=== PATIENT | male | born 1945 | race Caucasian/White ===

== ENCOUNTER → 2016-10-05 | Outpatient (REF) | payer MEDICARE ==
[~2016-10-05] MED LIST: FLOM5CAP PO; PERCOCET PO
[2016-10-05 11:33] LABS: BASO % 0.5 % (0.0-1.0); EOS # 0.3 K/mm3 (0.0-0.50); EOS % 4.4 % (0.0-3.0); LARGE UNSTAINED CELL # 0.1 K/mm3 (0.0-0.4); LARGE UNSTAINED CELL % 1.4 % (0.0-4.0); LYMPH # 1.7 K/mm3 (1.5-4.5); LYMPH % 26.8 % (24.0-44.0); MEAN CORPUSCULAR HEMOGLOBIN 31.8 pg (27.0-33.0); MEAN CORPUSCULAR HGB CONC 34.8 g/dl (32.0-36.5); MEAN CORPUSCULAR VOLUME 91.4 fl (80.0-96.0); MONO # 0.4 K/mm3 (0.0-0.8); NEUTROPHILS # 3.7 K/mm3 (1.8-7.7); NEUTROPHILS % 60.9 % (36.0-66.0); PLATELET COUNT, AUTOMATED 201 k/mm3 (150-450); RED CELL DISTRIBUTION WIDTH 13.1 % (11.5-14.5); WHITE BLOOD COUNT 6.1 K/mm3 (4.0-10.0)
[2016-10-05 11:55] LABS: ALBUMIN 4.1 GM/DL (3.2-5.2); ALBUMIN/GLOBULIN RATIO 1.17 (1.00-1.93); ALKALINE PHOSPHATASE 78 U/L (45-117); ALT/SGPT 35 U/L (12-78); ANION GAP 10 MEQ/L (8-16); AST/SGOT 25 U/L (15-37); BLOOD UREA NITROGEN 14 MG/DL (7-18); CALCIUM LEVEL 9.2 MG/DL (8.8-10.2); CARBON DIOXIDE LEVEL 27 MEQ/L (21-32); CHLORIDE LEVEL 104 MEQ/L (98-107); CHOLESTEROL LEVEL 153 MG/DL (<200); CREATININE FOR GFR 0.91 MG/DL (0.70-1.30); FERRITIN 139 NG/ML (26-388); GLOMERULAR FILTRATION RATE > 60.0 (>42); GLUCOSE, FASTING 131 MG/DL (83-110); PERCENT SATURATION 35.9 % (19.7-37.4); POTASSIUM SERUM 4.5 MEQ/L (3.5-5.1); SODIUM LEVEL 141 MEQ/L (136-145); TOTAL IRON BINDING CAPACITY 426 UG/DL (250-450); TOTAL PROTEIN 7.6 GM/DL (6.4-8.2); TRIGLYCERIDES LEVEL 240 MG/DL (<150)
== END ==
LOC: M SFHCPLAZ 08:00
PROVIDERS: ATTEND Family Medicine
DX: N18.2 Chronic kidney disease, stage 2 (mild) (principal); K76.0 Fatty (change of) liver, not elsewhere classified; E11.9 Type 2 diabetes mellitus without complications

== ENCOUNTER → 2016-12-30 | Outpatient (CLI) | payer MEDICARE ==
--- NOTE | 2016-12-30 12:21 | REP ---
RIGHT SHOULDER, THREE VIEWS: HISTORY: Shoulder pain. There is no acute fracture or dislocation. There is narrowing of the joint spaces. Osteophytes are present at the acromioclavicular joint. IMPRESSION: Degenerative change as described above. Signed by Jose Alexander MD 12/30/2016 12:32 P
== END ==
LOC: M SMT 10:40
PROVIDERS: ATTEND Physician Assistant
DX: M19.011 Primary osteoarthritis, right shoulder (principal)
CPT/HCPCS: 73030; G0463

== ENCOUNTER → 2017-02-11 | Outpatient (REF) | payer MEDICARE ==
[2017-02-11 11:38] LABS: BASO # 0.1 K/mm3 (0.0-0.2); BASO % 0.9 % (0.0-1.0); EOS # 0.2 K/mm3 (0.0-0.50); EOS % 2.3 % (0.0-3.0); LARGE UNSTAINED CELL # 0.1 K/mm3 (0.0-0.4); LARGE UNSTAINED CELL % 1.6 % (0.0-4.0); LYMPH # 1.7 K/mm3 (1.5-4.5); LYMPH % 26.8 % (24.0-44.0); MEAN CORPUSCULAR HEMOGLOBIN 32.8 pg (27.0-33.0); MEAN CORPUSCULAR HGB CONC 35.3 g/dl (32.0-36.5); MEAN CORPUSCULAR VOLUME 93.1 fl (80.0-96.0); MONO # 0.3 K/mm3 (0.0-0.8); MONO % 4.9 % (0.0-5.0); NEUTROPHILS # 4.1 K/mm3 (1.8-7.7); NEUTROPHILS % 63.4 % (36.0-66.0); PLATELET COUNT, AUTOMATED 175 k/mm3 (150-450); RED CELL DISTRIBUTION WIDTH 12.5 % (11.5-14.5); WHITE BLOOD COUNT 6.4 K/mm3 (4.0-10.0)
[2017-02-11 12:02] LABS: ALBUMIN 3.9 GM/DL (3.2-5.2); ALKALINE PHOSPHATASE 82 U/L (45-117); ALT/SGPT 45 U/L (12-78); ANION GAP 9 MEQ/L (8-16); AST/SGOT 24 U/L (15-37); BILIRUBIN,TOTAL 0.7 MG/DL (0.2-1.0); BLOOD UREA NITROGEN 20 MG/DL (7-18); CALCIUM LEVEL 9.1 MG/DL (8.8-10.2); CARBON DIOXIDE LEVEL 27 MEQ/L (21-32); CHLORIDE LEVEL 98 MEQ/L (98-107); CREATININE FOR GFR 0.83 MG/DL (0.70-1.30); GLOMERULAR FILTRATION RATE > 60.0 (>42); GLUCOSE, FASTING 147 MG/DL (83-110); POTASSIUM SERUM 4.1 MEQ/L (3.5-5.1); SODIUM LEVEL 134 MEQ/L (136-145); TOTAL PROTEIN 6.9 GM/DL (6.4-8.2)
== END ==
LOC: M SFHCPLAZ 08:10
PROVIDERS: ATTEND Family Medicine
DX: N18.2 Chronic kidney disease, stage 2 (mild) (principal); E11.9 Type 2 diabetes mellitus without complications; N40.1 Benign prostatic hyperplasia with lower urinary tract symptoms
CPT/HCPCS: 36415; 80053; 81001; 82043; 83036; 85025; G0103

== ENCOUNTER → 2017-03-10 | Outpatient (CLI) | payer MEDICARE ==
--- NOTE | 2017-03-10 09:49 | REP ---
CERVICAL SPINE, SEVEN VIEWS: HISTORY: Spondylosis. The cervical spine is visualized from C1-2 to C6-7 level in the lateral radiographs. There is no acute fracture. The C4-5 through C6-7 intervertebral discs are decreased in height consistent with disc degeneration. Osteophytes are present on C3 through C7. The neural foramina are not well seen, however, there is narrowing of the C5 and C6 neural foramina secondary to uncinate process hypertrophy. There are 3 mm of anterior subluxation of C4 on C5. This is unchanged with flexion and extension. There are 1.5 mm of anterior subluxation of C3 on C4 with flexion. This is not seen in neutral or extension radiographs. IMPRESSION: Degenerative change as described above. Signed by Jose lAexander MD 03/10/2017 09:51 A
== END ==
LOC: M SMT 08:21
PROVIDERS: ATTEND Family Medicine
DX: M47.812 Spondylosis without myelopathy or radiculopathy, cervical region (principal)

== ENCOUNTER → 2017-05-21 | Outpatient (REF) | payer MEDICARE ==
[2017-05-21 17:32] LABS: VITAMIN B12 LEVEL 546 PG/ML (247-911)
[2017-05-21 17:33] LABS: FREE T4 0.85 NG/DL (0.76-1.46)
[2017-05-25 10:49] LABS: PRETREATED FOLATE FOR RBCFOL 16.1 NG/ML
== END ==
LOC: M SFHCPLAZ 13:02
PROVIDERS: ATTEND Family Medicine
DX: G31.84 Mild cognitive impairment of uncertain or unknown etiology (principal)
CPT/HCPCS: 36415; 82607; 82747; 84439; 84443; 85652; 86140; G0463

== ENCOUNTER → 2017-07-06 | Outpatient (REF) | payer MEDICARE ==
[2017-07-06 10:00] LABS: BASO # 0.1 10^3/uL (0.0-0.2); BASO % 0.8 % (0.0-1.0); EOS # 0.2 10^3/uL (0.0-0.50); EOS % 3.7 % (0.0-3.0); IMMATURE GRANULOCYTE % 0.3 % (0-0); LYMPH # 1.7 10^3/uL (1.5-4.5); LYMPH % 25.8 % (24.0-44.0); MEAN CORPUSCULAR HEMOGLOBIN 32.2 pg (27.0-33.0); MEAN CORPUSCULAR HGB CONC 34.8 g/dl (32.0-36.5); MEAN CORPUSCULAR VOLUME 92.5 fl (80.0-96.0); MONO # 0.5 10^3/uL (0.0-0.8); MONO % 8.1 % (0.0-5.0); NEUTROPHILS % 61.3 % (36.0-66.0); PLATELET COUNT, AUTOMATED 169 10^3/uL (150-450); RED CELL DISTRIBUTION WIDTH 12.3 % (11.5-14.5); WHITE BLOOD COUNT 6.4 10^3/uL (4.0-10.0)
== END ==
LOC: M SFHCPLAZ 09:18
PROVIDERS: ATTEND Physician Assistant Medical
DX: R07.9 Chest pain, unspecified (principal); I10 Essential (primary) hypertension

== ENCOUNTER → 2017-11-01 | Outpatient (REF) | payer MEDICARE ==
[2017-11-01 11:51] LABS: C REACTIVE PROTEIN QUANTITATIV < 0.30 MG/DL (0.00-0.30); CHOLESTEROL LEVEL 137 MG/DL (<200); CHOLESTEROL RISK RATIO 4.029 (<5); CPK CREATINE PHOSPHOKINASE 65 U/L (39-308); FREE T4 0.84 NG/DL (0.76-1.46); HDL CHOLESTEROL 34 MG/DL (>40); LDL CHOLESTEROL 41.8 MG/DL (<100); NON-HDL-C 103 MG/DL; TRIGLYCERIDES LEVEL 306 MG/DL (<150)
[2017-11-01 11:54] LABS: TOTAL 25(OH) VITAMIN D 39.5 NG/ML (30.0-100.0)
[2017-11-01 11:55] LABS: PTH INTACT 25.8 PG/ML (18.5-88.0)
[2017-11-01 13:08] LABS: ESTIMATED AVERAGE GLUCOSE 143 MG/DL (60-110); HEMOGLOBIN A1c 6.6 %
== END ==
LOC: M SFHCPLAZ 08:12
DX: E78.5 Hyperlipidemia, unspecified (principal); E11.9 Type 2 diabetes mellitus without complications; E55.9 Vitamin D deficiency, unspecified
CPT/HCPCS: 82550

== ENCOUNTER → 2018-02-18 | Outpatient (REF) | payer MEDICARE ==
[2018-02-18 11:53] LABS: BASO % 0.8 % (0.0-1.0); EOS # 0.2 10^3/uL (0.0-0.50); EOS % 3.8 % (0.0-3.0); HEMATOCRIT 42.2 % (42.0-52.0); HEMOGLOBIN 14.3 g/dl (13.5-17.5); IMMATURE GRANULOCYTE % 0.4 % (0-3.0); LYMPH # 1.6 10^3/uL (1.5-4.5); LYMPH % 29.7 % (24.0-44.0); MEAN CORPUSCULAR HEMOGLOBIN 31.7 pg (27.0-33.0); MEAN CORPUSCULAR HGB CONC 33.9 g/dl (32.0-36.5); MEAN CORPUSCULAR VOLUME 93.6 fl (80.0-96.0); MONO # 0.4 10^3/uL (0.0-0.8); MONO % 8.3 % (0.0-5.0); PLATELET COUNT, AUTOMATED 185 10^3/uL (150-450); RED BLOOD COUNT 4.51 10^6/uL (4.30-6.10); RED CELL DISTRIBUTION WIDTH 13.2 % (11.5-14.5); WHITE BLOOD COUNT 5.3 10^3/uL (4.0-10.0)
[2018-02-18 11:59] LABS: APPEARANCE, URINE CLOUDY (CLEAR); BACTERIA, URINE AUTO NEGATIVE (NEGATIVE); BILIRUBIN, URINE AUTO NEGATIVE (NEGATIVE); BLOOD, URINE BLOOD NEGATIVE (NEGATIVE); COLOR, URINE AMBER (YELLOW); GLUCOSE, URINE (UA) AUTO NEGATIVE (NEGATIVE); KETONE, URINE AUTO NEGATIVE (NEGATIVE); LEUKOCYTE ESTERASE, URINE AUTO NEGATIVE (NEGATIVE); MUCUS, URINE SMALL (NEGATIVE); NITRITE, URINE AUTO NEGATIVE (NEGATIVE); PROTEIN, URINE AUTO NEGATIVE (NEGATIVE); RBC, URINE AUTO 1 /HPF (0-3); SPECIFIC GRAVITY URINE AUTO 1.016 (1.002-1.035); SQUAMOUS EPITHELIAL CELL UR AU 0 /HPF (0-6); UROBILINOGEN, URINE AUTO 0.2 mg/dL (0.0-2.0); WBC, URINE AUTO 1 /HPF (0-3)
[2018-02-18 12:11] LABS: ALBUMIN/GLOBULIN RATIO 1.38 (1.00-1.93); ALKALINE PHOSPHATASE 63 U/L (45-117); ALT/SGPT 37 U/L (12-78); ANION GAP 8 MEQ/L (8-16); AST/SGOT 30 U/L (7-37); BILIRUBIN,TOTAL 1.3 MG/DL (0.2-1.0); BLOOD UREA NITROGEN 17 MG/DL (7-18); CALCIUM LEVEL 9.1 MG/DL (8.8-10.2); CARBON DIOXIDE LEVEL 27 MEQ/L (21-32); CHLORIDE LEVEL 104 MEQ/L (98-107); CREATININE FOR GFR 0.85 MG/DL (0.70-1.30); GLOMERULAR FILTRATION RATE > 60.0 (>42); GLUCOSE, FASTING 126 MG/DL (70-100); MAGNESIUM LEVEL 1.9 MG/DL (1.8-2.4); POTASSIUM SERUM 4.2 MEQ/L (3.5-5.1); PROSTATIC SPECIFIC AG MONITOR 3.59 NG/ML (< 4.0); SODIUM LEVEL 139 MEQ/L (136-145); TOTAL PROTEIN 6.9 GM/DL (6.4-8.2)
[2018-02-18 12:29] LABS: MALB URINE SIEMENS 14.4 MG/L; MAU/CREAT RATIO 12.1 MCG/MG (0.0-30.0)
[2018-02-18 12:45] LABS: ESTIMATED AVERAGE GLUCOSE 146 MG/DL (60-110); HEMOGLOBIN A1c 6.7 %
== END ==
LOC: M SFHCPLAZ 08:10
DX: I10 Essential (primary) hypertension (principal); E11.9 Type 2 diabetes mellitus without complications; N40.1 Benign prostatic hyperplasia with lower urinary tract symptoms
CPT/HCPCS: 83735

== ENCOUNTER → 2018-09-06 | Outpatient (REF) | payer MEDICARE ==
[~2018-09-06] MED LIST changes: +FLOM0.4C39 PO; -FLOM5CAP PO
[2018-09-06 12:43] LABS: ALT/SGPT 33 U/L (12-78); BILIRUBIN,TOTAL 1.3 MG/DL (0.2-1.0); BLOOD UREA NITROGEN 15 MG/DL (7-18); C REACTIVE PROTEIN QUANTITATIV < 0.30 MG/DL (0.00-0.30); CALCIUM LEVEL 8.6 MG/DL (8.8-10.2); CARBON DIOXIDE LEVEL 29 MEQ/L (21-32); CHLORIDE LEVEL 104 MEQ/L (98-107); CHOLESTEROL LEVEL 141 MG/DL (<200); CPK CREATINE PHOSPHOKINASE 88 U/L (39-308); CREATININE FOR GFR 0.76 MG/DL (0.70-1.30); GLOMERULAR FILTRATION RATE > 60.0 (>42); GLUCOSE, FASTING 135 MG/DL (70-100); HDL CHOLESTEROL 38 MG/DL (>40); LDL CHOLESTEROL 63 MG/DL (<100); NON-HDL-C 103 MG/DL; POTASSIUM SERUM 4.2 MEQ/L (3.5-5.1); PTH INTACT 69.1 PG/ML (18.5-88.0); SODIUM LEVEL 138 MEQ/L (136-145); TOTAL 25(OH) VITAMIN D 33.4 NG/ML (30.0-100.0); TOTAL PROTEIN 6.7 GM/DL (6.4-8.2); TRIGLYCERIDES LEVEL 198 MG/DL (<150); VITAMIN B12 LEVEL 409 PG/ML (247-911)
[2018-09-06 12:58] LABS: HEMATOCRIT 42.2 % (42.0-52.0)
[2018-09-06 13:07] LABS: HEMOGLOBIN A1c 6.9 %
[2018-09-08 13:08] LABS: ALBUMIN 4.16 GM/DL (3.29-5.55); ALBUMIN % 62.1 % (55.8-66.1); ALPHA-1-GLOBULIN % 3.2 % (2.9-4.9); ALPHA-1-GLOBULINS 0.21 GM/DL (0.17-0.41); ALPHA-2-GLOBULINS % 10.4 % (7.1-11.8); BETA-1-GLOBULINS % 6.8 % (4.7-7.2); BETA-2-GLOBULINS % 5.7 % (3.2-6.5); GAMMA GLOBULIN % 11.8 % (11.1-18.8)
[2018-09-08 13:09] LABS: BETA-1-GLOBULINS 0.46 GM/DL (0.28-0.60); BETA-2-GLOBULINS 0.38 GM/DL (0.19-0.55); GAMMA GLOBULINS 0.79 GM/DL (0.65-1.58)
== END ==
LOC: M SFHCPLAZ 08:30
PROVIDERS: ATTEND Family Medicine
DX: E11.9 Type 2 diabetes mellitus without complications (principal); E55.9 Vitamin D deficiency, unspecified; D75.89 Other specified diseases of blood and blood-forming organs

== ENCOUNTER → 2018-09-27 | Outpatient (CLI) | payer MEDICARE ==
--- NOTE | 2018-09-27 10:35 | REP ---
RIGHT ANKLE, FOUR VIEWS: HISTORY: Injury. There is no acute fracture or dislocation. The joint space is normal in appearance. Osteophytes are present on the inferior and posterior calcaneus. IMPRESSION:There is no acute fracture or dislocation. Electronically Signed by Jose Alexander MD 09/27/2018 10:43 A
[2018-09-27 13:34] LABS: ALBUMIN 3.8 GM/DL (3.2-5.2); ALT/SGPT 34 U/L (12-78); BILIRUBIN,TOTAL 0.9 MG/DL (0.2-1.0); BLOOD UREA NITROGEN 19 MG/DL (7-18); CALCIUM LEVEL 8.7 MG/DL (8.8-10.2); CARBON DIOXIDE LEVEL 28 MEQ/L (21-32); CHLORIDE LEVEL 105 MEQ/L (98-107); CREATININE FOR GFR 0.86 MG/DL (0.70-1.30); GLOMERULAR FILTRATION RATE > 60.0 (>42); GLUCOSE, FASTING 142 MG/DL (70-100); POTASSIUM SERUM 4.6 MEQ/L (3.5-5.1); SODIUM LEVEL 139 MEQ/L (136-145)
== END ==
LOC: M SMT 09:18
PROVIDERS: ATTEND Physician Assistant Medical
DX: M25.771 Osteophyte, right ankle (principal); S99.911A Unspecified injury of right ankle, initial encounter; I10 Essential (primary) hypertension; Y92.310 Basketball court as the place of occurrence of the external cause; Y93.79 Activity, other specified sports and athletics
CPT/HCPCS: 36415; 73610; 80053; G0463

== ENCOUNTER → 2018-10-06 | Outpatient (REF) | payer MEDICARE ==
[2018-10-06 13:03] LABS: ALBUMIN 4.1 GM/DL (3.2-5.2); ALT/SGPT 40 U/L (12-78); BLOOD UREA NITROGEN 21 MG/DL (7-18); CALCIUM LEVEL 9.1 MG/DL (8.8-10.2); CARBON DIOXIDE LEVEL 28 MEQ/L (21-32); CHLORIDE LEVEL 103 MEQ/L (98-107); CREATININE FOR GFR 0.92 MG/DL (0.70-1.30); GLOMERULAR FILTRATION RATE > 60.0 (>42); GLUCOSE, FASTING 155 MG/DL (70-100); POTASSIUM SERUM 4.6 MEQ/L (3.5-5.1); SODIUM LEVEL 139 MEQ/L (136-145); TOTAL PROTEIN 7.1 GM/DL (6.4-8.2)
== END ==
LOC: M SFHCPLAZ 08:49
PROVIDERS: ATTEND Physician Assistant Medical
DX: I10 Essential (primary) hypertension (principal)

== ENCOUNTER 2018-11-07 12:33 | Observation (INO) | payer MEDICARE ==
[~2018-11-07] VITALS: Ht 177.8 cm; Wt 85.7 kg
--- NOTE | 2018-11-07 14:00 | REP ---
CT Head without contrast HISTORY: Altered mental status COMPARISON: None Areas of decreased attenuation are present in the periventricular white matter. This represents small-vessel ischemic disease. There is no intraparenchymal hemorrhage, acute infarct, mass or midline shift. The ventricular system and cortical sulci are dilated consistent with minimal volume loss. There is no extra cerebral collection. There is no fracture. The visualized sinuses are clear. IMPRESSION: 1. Small vessel ischemic disease. 2. Minimal volume loss. Electronically Signed by Jose Alexander MD 11/07/2018 01:51 P
--- NOTE | 2018-11-07 14:17 | REP ---
Chest one-view HISTORY: Altered mental status Comparison: 03/11/2016 The lungs are clear. The heart is normal in size. The pulmonary vasculature is normal in appearance. Impression: No acute disease. Electronically Signed by Jose Alexander MD 11/07/2018 02:08 P
[2018-11-07 14:22] LABS: BASO # 0.1 10^3/uL (0.0-0.2); BASO % 0.8 % (0.0-1.0); EOS # 0.3 10^3/uL (0.0-0.50); EOS % 3.9 % (0.0-3.0); HEMATOCRIT 43.1 % (42.0-52.0); HEMOGLOBIN 14.8 g/dl (13.5-17.5); LYMPH % 31.1 % (24.0-44.0); MEAN CORPUSCULAR HEMOGLOBIN 32.1 pg (27.0-33.0); MEAN CORPUSCULAR HGB CONC 34.3 g/dl (32.0-36.5); MEAN CORPUSCULAR VOLUME 93.5 fl (80.0-96.0); MONO # 0.6 10^3/uL (0.0-0.8); MONO % 9.4 % (0.0-5.0); NEUTROPHILS # 3.5 10^3/uL (1.8-7.7); NEUTROPHILS % 54.3 % (36.0-66.0); PLATELET COUNT, AUTOMATED 175 10^3/uL (150-450); RED BLOOD COUNT 4.61 10^6/uL (4.30-6.10); WHITE BLOOD COUNT 6.4 10^3/uL (4.0-10.0)
[2018-11-07] MEDS ORDERED: CLOPIDOGREL 300 MG TAB (PLAVIX) PO STA (14:31)
[2018-11-07 14:38] LABS: ALBUMIN 4.4 GM/DL (3.2-5.2); ALT/SGPT 49 U/L (12-78); BILIRUBIN,DIRECT 0.2 MG/DL (0.0-0.2); BLOOD UREA NITROGEN 26 MG/DL (7-18); CALCIUM LEVEL 8.8 MG/DL (8.8-10.2); CARBON DIOXIDE LEVEL 27 MEQ/L (21-32); CHLORIDE LEVEL 103 MEQ/L (98-107); CPK CREATINE PHOSPHOKINASE 96 U/L (39-308); CREATININE FOR GFR 1.02 MG/DL (0.70-1.30); ETHYL ALCOHOL (ETHANOL) < 0.003 % (0.000-0.010); GLOMERULAR FILTRATION RATE > 60.0 (>42); GLUCOSE, FASTING 170 MG/DL (70-100); MB/CK RELATIVE INDEX 1.98 (< OR =4); POTASSIUM SERUM 5.1 MEQ/L (3.5-5.1); SODIUM LEVEL 135 MEQ/L (136-145); TOTAL PROTEIN 7.5 GM/DL (6.4-8.2); TROPONIN I < 0.02 NG/ML (< 0.10)
[2018-11-07] MEDS ORDERED: ASPIRIN 325 MG TAB PO ONE (14:45)
[2018-11-07] MEDS ORDERED: CARV12.5 PO (14:50)
[2018-11-07] MEDS ORDERED: SIMV10TA2 PO (14:50)
[2018-11-07] MEDS ORDERED: NEUR100C PO (14:50)
[2018-11-07] MEDS ORDERED: D3 22000 PO (14:50)
[2018-11-07] MEDS ORDERED: ASPI81TA85 PO (14:50)
[2018-11-07] MEDS ORDERED: VOLT1GEL15 TD (14:50)
[2018-11-07] MEDS ORDERED: SPIR-10 PO (14:50)
[2018-11-07] MEDS ORDERED: METF750T PO (14:59)
[2018-11-07] MEDS ORDERED: DEXTROSE 50% 50 ML SYRINGE IV PRN (15:15)
[2018-11-07] MEDS ORDERED: GLUCOSE 4 GM CHEW TABLET PO PRN (15:15)
[2018-11-07] MEDS ORDERED: GLUCAGON FOR INJ 1 MG VIAL (J1610) SC PRN (15:15)
--- NOTE | 2018-11-07 15:49 | HPE ---
DATE OF ADMISSION: 11/07/2018 CHIEF COMPLAINT: Aphasia. HISTORY: Brannon Helton is a 72-year-old admitted with a brief episode of aphasia. He has multiple vascular risk factors. He presented to the emergency room after having an episode this morning where he had trouble saying the right words, he could not say a word like "baseball" and could not express himself normally. Onlookers describe no facial droop or weakness, hemisensory or hemiplegia deficits. The event was short-term and resolved when he drank some orange juice suggesting it probably was hypoglycemic in origin. He has type 2 diabetes but is only on metformin and has not had previous hypoglycemia. He has a history of type 2 diabetes, hyperlipidemia, hypertension, nonalcoholic fatty liver disease, he had asymptomatic nonsustained ventricular tachycardia with a normal cardiac catheterization 01/2000, had a nuclear stress test that was normal 10/2005. Other past history shows renal stones, traumatic right bicep rupture, fatty liver, CT 01/2016 showing marked diffuse fatty liver with moderate hepatomegaly. He has a simple cyst on his upper pole of his right kidney. He has had trouble with right shoulder pain. OUTPATIENT MEDICATIONS: - aspirin 81 mg daily - metformin ER 750 mg three times a day (he is on the ER formulation three times a day) - simvastatin 20 mg half a tablet (10 mg) daily - telmisartan 80 mg daily - carvedilol 12.5 mg twice a day - Voltaren gel - spironolactone 25 mg daily - gabapentin 100 mg twice a day SURGICAL HISTORY: Colonoscopy 11/2003, 11/2011, extracorporeal shockwave lithotripsy (ESWL) 03/2016, hand surgery 12/2016. FAMILY HISTORY: Father of chronic obstructive pulmonary disease (COPD) at 77. Mother has diabetes, hyperlipidemia, coronary artery disease, and valvular heart disease. SOCIAL HISTORY: Nonsmoker. Moderate to high alcohol intake, 3-4 per day. Physically active. 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 He is not bad. ALLERGIES: Certain STATINS have given him myalgias. REVIEW OF SYSTEMS: No palpitations, chest pain, headache, nausea, vomiting, visual disturbance, neck stiffness, shortness of breath, palpitations. PHYSICAL EXAMINATION: Vital signs: Per flow sheet. General appearance: He is alert, conversant, in no distress. No facial droop or weakness. Pupils are equal, round, reactive to light. Tympanic membranes (TMs) and oropharynx benign. Neck: No masses. Lungs: Clear. Heart: Regular rhythm. Abdomen: Soft, nontender, no masses. Extremities: Without clubbing, cyanosis, or edema. He has normal strength, reflexes, coordination, and sensation in all extremities. His speech is normal. CT of the brain showed no bleed, small vessel disease, minimal volume loss. Chest x-ray no active disease. CBC unremarkable. CMP unremarkable. Blood sugar when he arrived in the emergency room was 128. IMPRESSION: 1. Brief episode of aphasia. I suspect it was probable hypoglycemia. It resolved with drinking orange juice. He is on metformin and typically it does not cause hypoglycemia, but he did skip breakfast this morning and just had coffee so it is a possibility. He will be admitted for further workup including MRI of the brain, carotid ultrasound, and echocardiogram. Dr. Castellanos spoke with the stroke center in [place] and has already given a loading dose of Plavix and aspirin and they recommended Plavix 75 mg daily, aspirin 325 mg daily, and then in a month go back to aspirin alone (this is also assuming it is ischemic in origin and not hypoglycemic). Telemetry bed. 2. Diabetes. Will hold his metformin for now. Sliding scale with insulin coverage. 3. Hyperlipidemia. This might be a transient ischemic attack (TIA) and he is on a lower than recommended dose of statins. He has previously had trouble with statins but I think clinical circumstances warrant a trial of high-intensity statin, atorvastatin 80 mg daily ordered. 4. Hypertension. Will continue his carvedilol and spironolactone with permissive hypertension. I should note that he does not have his telmisartan 80 mg daily in his medication list, I am not sure he is actually taking this at home. Patient is on observation status. Hopefully he can be discharged tomorrow. Dr. Schaefer will be assuming his care.
[2018-11-07] MEDS: HumaLOG INSULIN (NovoLOG) PER UNIT SC SCH (17:30)
--- NOTE | 2018-11-07 19:45 | REP ---
MR BRAIN WITHOUT CONTRAST: Multiple sequences were obtained in the sagittal and axial planes. There is mild atrophy. There is no midline shift or mass effect. Walker-white differentiation is well maintained. Mild periventricular T2 signal hyperintensities are seen in the white matter, including the subcortical region of the right posterior parietal lobe and left frontal lobe. Findings are compatible with mild chronic gliosis and small vessel ischemic change. There is no acute infract identified. VII and VIII nerve complexes appear unremarkable. There is no abnormal signal in the brain stem or cerebellum. I see no abnormal signal in the visualized paranasal sinuses. The globes are intact. IMPRESSION: Mild small vessel ischemic changes and gliosis in the white matter. No acute infarct or other acute finding. Electronically Signed by Tray Walker MD 11/09/2018 09:58 A
--- NOTE | 2018-11-07 19:47 | REPVR ---
EXAM: US Duplex Bilateral Extracranial Arteries EXAM DATE/TIME: 11/07/2018 6:32 PM CLINICAL HISTORY: 72 years old, male; Signs and symptoms; Altered mental status/memory loss; Additional info: TIA TECHNIQUE: Imaging protocol: Real-time Duplex ultrasound scan of the Bilateral carotid and vertebral arteries combining mckee scale, color Doppler and spectral waveform analysis. COMPARISON: No relevant prior studies available. FINDINGS: Right common carotid artery: Unremarkable. No occlusion or stenosis. Waveforms are normal. Right internal carotid artery: Mild soft and calcified plaque. No occlusion or stenosis. Waveforms are normal. Right ICA/CCA ratio: Within normal limits. 0.81. Right external carotid artery: No stenosis in the origin. Right vertebral artery: Unremarkable. Antegrade flow Left common carotid artery: Unremarkable. No occlusion or stenosis. Waveforms are normal. Left internal carotid artery: Mild soft and calcified plaque. No occlusion or stenosis. Waveforms are normal. Left ICA/CCA ratio: Within normal limits. 0.73. Left external carotid artery: No stenosis in the origin. Left vertebral artery: Unremarkable. Antegrade flow. IMPRESSION: 1. Less than 50% right ICA stenosis. 2. Less than 50% left ICA stenosis. 3. The vertebral arteries appear antegrade and patent. COMMENT: Carotid Stenosis Reference using SRU criteria: Mild: less than 50% stenosis. ICA PSV is less than 125 cm/second and plaque or intimal thickening is visible. Moderate: 50-69% stenosis. ICA PSV is 125 to 230 cm/second and plaque is visible. Severe: 70-94% stenosis. ICA PSV is more than 230 cm/second and visible plaque and lumen narrowing are seen. Near occlusion: 95-99% stenosis. ICA PSV is variable and significant plaque and luminal narrowing are seen. Occluded: 100% stenosis. No flow identified. Electronically signed by: Ewa Umaña On 11/07/2018 19:46:40 PM
[2018-11-07] MEDS: GABAPENTIN 100 MG CAP PO SCH (20:52)
[2018-11-07] MEDS: CARVedilol 12.5 MG TAB PO SCH (20:53)
[2018-11-07] MEDS ORDERED: HumaLOG INSULIN (NovoLOG) PER UNIT SC SCH (21:00)
--- NOTE | 2018-11-08 01:36 | ECGEPIP ---
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
[2018-11-08 07:26] LABS: HEMATOCRIT 44.7 % (42.0-52.0); HEMOGLOBIN 15.5 g/dl (13.5-17.5); MEAN CORPUSCULAR HEMOGLOBIN 31.5 pg (27.0-33.0); MEAN CORPUSCULAR HGB CONC 34.7 g/dl (32.0-36.5); MEAN CORPUSCULAR VOLUME 90.9 fl (80.0-96.0); PLATELET COUNT, AUTOMATED 178 10^3/uL (150-450); RED BLOOD COUNT 4.92 10^6/uL (4.30-6.10); WHITE BLOOD COUNT 7.6 10^3/uL (4.0-10.0)
[2018-11-08 07:34] LABS: BLOOD UREA NITROGEN 18 MG/DL (7-18); CALCIUM LEVEL 8.8 MG/DL (8.8-10.2); CARBON DIOXIDE LEVEL 23 MEQ/L (21-32); CHLORIDE LEVEL 103 MEQ/L (98-107); CREATININE FOR GFR 0.96 MG/DL (0.70-1.30); GLOMERULAR FILTRATION RATE > 60.0 (>42); GLUCOSE, FASTING 165 MG/DL (70-100); POTASSIUM SERUM 4.3 MEQ/L (3.5-5.1); SODIUM LEVEL 136 MEQ/L (136-145)
[2018-11-08 08:00] VITALS: BP 136/80
[2018-11-08 08:49] VITALS: BP 134/76
[2018-11-08] MEDS: CARVedilol 12.5 MG TAB PO SCH (08:49)
[2018-11-08] MEDS: GABAPENTIN 100 MG CAP PO SCH (08:49)
[2018-11-08] MEDS: HumaLOG INSULIN (NovoLOG) PER UNIT SC SCH ×2 (08:53→12:12)
[2018-11-08] MEDS ORDERED: CLOPIDOGREL 75 MG TAB PO SCH (09:00)
[2018-11-08] MEDS ORDERED: ATORVASTATIN 20 MG TAB PO SCH (09:00)
[2018-11-08] MEDS ORDERED: ASPIRIN 325 MG TAB PO SCH (09:00)
[2018-11-08] MEDS ORDERED: SPIRONOLACTONE 25 MG TAB PO SCH (09:00)
[2018-11-08 12:00] VITALS: BP 148/74
--- NOTE | 2018-11-08 15:34 | DSES ---
DATE OF ADMISSION: 11/07/2018 DATE OF DISCHARGE: 11/08/2018 PRIMARY CARE PHYSICIAN: Dr. Gee Lyons ATTENDING PHYSICIAN: Dr. Shai Schaefer HISTORY OF PRESENT ILLNESS: This is a 72-year-old gentleman who had a brief episode of aphasia on the morning of 11/07/2018. He states he woke up, took his metformin, did not eat breakfast and proceeded to drink a few cups of coffee. He was in his 's shop and developed some sudden onset dizziness and difficulty finding his words. This resolved with a glass of orange juice. He took himself home and had a repeat episode of feeling dizzy with some mild confusion. His daughter brought him to the emergency department at this time. In the ED, patient was given a loading dose of Plavix and aspirin. It was recommended that patient continue with Plavix 75 daily, aspirin 325 daily. This is assuming that he actually had an ischemic event versus a hypoglycemic episode. Patient was subsequently admitted to the family medicine service. Testing includes brain MRI, vascular ultrasound, chest x-ray, and head CT all of which were negative. His carotids showed less than 50% right ICA stenosis and less than 50% left ICA stenosis. Vertebral arteries appear antegrade and patent. Telemetry has been uneventful. Patient has not had any further episodes during his hospitalization. Blood sugars were monitored and have been in the 103-181 range. His metformin has been held throughout hospitalization as well. Electrolytes are stable. On physical exam, vital signs are stable. He is afebrile. HEENT: Neck is supple without lymphadenopathy or jugular venous distention (JVD). No carotid bruits appreciated. CARDIOVASCULAR: Heart rate and rhythm are regular. PULMONARY: Lungs clear to auscultation bilaterally. ABDOMEN: Soft and nontender. Positive bowel sounds times four quadrants. BILATERAL LOWER EXTREMITIES: Without any edema. Positive pedal pulses times two. NEUROLOGIC: Patient is alert and oriented times three. There is no visible facial droop. Speech is congruent. There is slur noted. PSYCHIATRIC: Affect is appropriate. Conversation is congruent. ASSESSMENT: 1. Episode of aphasia most likely secondary to hypoglycemic episode as he skipped breakfast, which is not the norm for him. 2. Diabetes. 3. Hypertension. PLAN: Patient will be discharged to home. We will order an echocardiogram as an outpatient. We will hold his metformin until he follows up with his primary care physician. Diet is 2 gram sodium consistent carbohydrate. Activity is as tolerated. Medications are as follows: - aspirin 81 mg daily - carvedilol 12.5 mg by mouth twice a day - vitamin D3 2000 international units by mouth daily - diclofenac sodium gel one application transdermal daily as needed, pain - gabapentin 100 mg by mouth twice a day - simvastatin 10 mg by mouth daily - spironolactone 75 mg daily Patient declined his Plavix as well as full dose aspirin for potential ischemic event, and he also declined high dose statin as he has had difficulty taking those in the past. The rule for hypoglycemia was reviewed with the patient and he was sent home with educational material. Patient is discharged in stable and satisfactory condition with no further questions at time of discharge. Family Medicine Attending Note: I saw and examined Mr. Dykes, discussed with MAN Teresa. Agree with her note as documented. I had a [id number] visit with the patient on the day of his discharge. I agree that he was stable for discharge. 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
== END 2018-11-08 13:50 | disposition home or self-care (01) ==
LOC: M ED 12:33 → M ED INP 15:11 → M PCU 11-08 08:00
PROVIDERS: ADMIT Family Medicine; ATTEND Family Medicine
DX: R47.01 Aphasia (principal); I67.82 Cerebral ischemia; E11.9 Type 2 diabetes mellitus without complications; I10 Essential (primary) hypertension; E78.5 Hyperlipidemia, unspecified; R00.0 Tachycardia, unspecified; K76.0 Fatty (change of) liver, not elsewhere classified; Z87.442 Personal history of urinary calculi; Z79.899 Other long term (current) drug therapy; Z79.84 Long term (current) use of oral hypoglycemic drugs; Z79.82 Long term (current) use of aspirin; Z88.8 Allergy status to other drugs, medicaments and biological substances
CPT/HCPCS: 36415; 70450; 70551; 71045; 80048; 80076; 82550; 82553; 84443; 84484; 85025; 85027; 93005; 93041; 93880; 94760; 99285; G0378; G0480

== ENCOUNTER → 2018-11-22 | Outpatient (CLI) | payer MEDICARE ==
[~2018-11-22] MED LIST changes: +ASPI81TA85 PO; +CARV12.5 PO; +D3 22000 PO; +METF750T PO; +NEUR100C PO; +SIMV10TA2 PO; +SPIR-10 PO; +VOLT1GEL15 TD
--- NOTE | 2018-11-22 13:45 | REP ---
MR angiography the brain without contrast: History: TIA. No comparison brain MR ANGIO. Technique: 3-D [id number] MR angiography of the brain is acquired in the usual fashion and maximal intensity projection images were generated in rotational format about the vertical and horizontal axes. In addition, source axial T1-weighted images are viewed in cine mode. MR angiographic findings: The distal vertebral arteries are patent and co-dominant. Basilar artery is a little tortuous but widely patent. The posterior cerebral and superior cerebellar vessels are normal and symmetric. The distal internal carotid arteries are unremarkable. Anterior and middle cerebral arteries appear intact. There is no visible mendoza aneurysm or arteriovenous malformation. Impression: Unremarkable MR angiography the brain. Electronically Signed by Riaz Siegel MD 11/22/2018 01:38 P
== END ==
LOC: M RAD 10:07
PROVIDERS: ATTEND Family Medicine
DX: Z86.73 Personal history of transient ischemic attack (TIA), and cerebral infarction without residual deficits (principal)

== ENCOUNTER → 2019-02-07 | Outpatient (REF) | payer MEDICARE ==
[2019-02-07 11:41] LABS: INR 1.04; PROTHROMBIN TIME 13.3 SECONDS (11.8-14.0)
[2019-02-07 11:42] LABS: PARTIAL THROMBOPLASTIN TIME 30.3 SECONDS (25.0-38.4)
[2019-02-07 11:45] LABS: ALBUMIN 3.8 GM/DL (3.2-5.2); ALT/SGPT 34 U/L (12-78); BILIRUBIN,DIRECT 0.2 MG/DL (0.0-0.2); BILIRUBIN,TOTAL 0.9 MG/DL (0.2-1.0); BLOOD UREA NITROGEN 21 MG/DL (7-18); CALCIUM LEVEL 8.9 MG/DL (8.8-10.2); CARBON DIOXIDE LEVEL 26 MEQ/L (21-32); CHLORIDE LEVEL 107 MEQ/L (98-107); CHOLESTEROL LEVEL 98 MG/DL (<200); CREATININE FOR GFR 0.89 MG/DL (0.70-1.30); FREE T4 0.83 NG/DL (0.76-1.46); GLOMERULAR FILTRATION RATE > 60.0 (>42); GLUCOSE, FASTING 132 MG/DL (70-100); HDL CHOLESTEROL 35 MG/DL (>40); LDL CHOLESTEROL 14 MG/DL (<100); NON-HDL-C 63 MG/DL; POTASSIUM SERUM 4.1 MEQ/L (3.5-5.1); SODIUM LEVEL 140 MEQ/L (136-145); TOTAL PROTEIN 6.9 GM/DL (6.4-8.2); TRIGLYCERIDES LEVEL 247 MG/DL (<150)
[2019-02-07 11:48] LABS: HEMOGLOBIN A1c 7.2 %
[2019-02-07 11:55] LABS: APPEARANCE, URINE CLEAR (CLEAR); BACTERIA, URINE AUTO NEGATIVE (NEGATIVE); BILIRUBIN, URINE AUTO NEGATIVE (NEGATIVE); BLOOD, URINE BLOOD NEGATIVE (NEGATIVE); COLOR, URINE YELLOW (YELLOW); GLUCOSE, URINE (UA) AUTO NEGATIVE (NEGATIVE); KETONE, URINE AUTO NEGATIVE (NEGATIVE); LEUKOCYTE ESTERASE, URINE AUTO NEGATIVE (NEGATIVE); MUCUS, URINE SMALL (NEGATIVE); NITRITE, URINE AUTO NEGATIVE (NEGATIVE); PROTEIN, URINE AUTO NEGATIVE (NEGATIVE); RBC, URINE AUTO 3 /HPF (0-3); SPECIFIC GRAVITY URINE AUTO 1.019 (1.002-1.035); SQUAMOUS EPITHELIAL CELL UR AU 0 /HPF (0-6); UROBILINOGEN, URINE AUTO 0.2 mg/dL (0.0-2.0); WBC, URINE AUTO 2 /HPF (0-3)
== END ==
LOC: M SFHCPLAZ 09:00
PROVIDERS: ATTEND Family Medicine
DX: K76.0 Fatty (change of) liver, not elsewhere classified (principal); E11.9 Type 2 diabetes mellitus without complications; Z12.5 Encounter for screening for malignant neoplasm of prostate
CPT/HCPCS: 36415; 80053; 80061; 81001; 82105; 82248; 82397; 83036; 83520; 83883; 84439; 84443; 85610; 85730; G0103

== ENCOUNTER → 2019-06-23 | Outpatient (CLI) | payer MEDICARE ==
[~2019-06-23] MED LIST changes: -METF750T PO; +METF750T36 PO; -SIMV10TA2 PO; +SIMV10TA21 PO
[2019-06-23 15:15] LABS: BASO # 0.1 10^3/uL (0.0-0.2); BASO % 0.8 % (0.0-1.0); EOS # 0.3 10^3/uL (0.0-0.5); EOS % 4.1 % (0.0-3.0); HEMATOCRIT 43.2 % (42.0-52.0); HEMOGLOBIN 14.2 g/dl (13.5-17.5); LYMPH # 1.9 10^3/uL (1.5-5.0); LYMPH % 25.7 % (24.0-44.0); MEAN CORPUSCULAR HEMOGLOBIN 31.6 pg (27.0-33.0); MEAN CORPUSCULAR HGB CONC 32.9 g/dl (32.0-36.5); MEAN CORPUSCULAR VOLUME 96.2 fl (80.0-96.0); MONO # 0.6 10^3/uL (0.0-0.8); MONO % 8.3 % (0.0-5.0); NEUTROPHILS # 4.4 10^3/uL (1.5-8.5); NEUTROPHILS % 60.8 % (36.0-66.0); PLATELET COUNT, AUTOMATED 220 10^3/uL (150-450); RED BLOOD COUNT 4.49 10^6/uL (4.30-6.10); WHITE BLOOD COUNT 7.3 10^3/uL (4.0-10.0)
[2019-06-23 15:32] LABS: HEMOGLOBIN A1c 7.5 %
[2019-06-23 15:41] LABS: ALBUMIN 4.2 GM/DL (3.2-5.2); ALT/SGPT 51 U/L (12-78); BILIRUBIN,TOTAL 1.2 MG/DL (0.2-1.0); BLOOD UREA NITROGEN 21 MG/DL (7-18); CALCIUM LEVEL 9.5 MG/DL (8.8-10.2); CARBON DIOXIDE LEVEL 27 MEQ/L (21-32); CHLORIDE LEVEL 104 MEQ/L (98-107); CREATININE FOR GFR 1.14 MG/DL (0.70-1.30); GLOMERULAR FILTRATION RATE > 60.0 (>42); GLUCOSE, FASTING 159 MG/DL (70-100); MAGNESIUM LEVEL 1.9 MG/DL (1.8-2.4); POTASSIUM SERUM 5.7 MEQ/L (3.5-5.1); SODIUM LEVEL 137 MEQ/L (136-145); TOTAL PROTEIN 7.7 GM/DL (6.4-8.2)
[2019-06-23 15:49] LABS: VITAMIN B12 LEVEL 312 PG/ML (247-911)
== END ==
LOC: M PLALAB 08:53
PROVIDERS: ATTEND Family Medicine
DX: I10 Essential (primary) hypertension (principal)

== ENCOUNTER → 2019-11-17 | Outpatient (REF) | payer MEDICARE ==
[2019-11-17 11:37] LABS: INR 1.06; PROTHROMBIN TIME 13.5 SECONDS (11.8-14.0)
[2019-11-17 11:53] LABS: PARTIAL THROMBOPLASTIN TIME 31.6 SECONDS (25.0-38.4)
[2019-11-17 12:15] LABS: VITAMIN B12 LEVEL 384 PG/ML (247-911)
[2019-11-17 12:16] LABS: HEMOGLOBIN A1c 7.4 %
[2019-11-17 12:27] LABS: ALT/SGPT 42 U/L (12-78); BILIRUBIN,TOTAL 1.4 MG/DL (0.2-1.0); BLOOD UREA NITROGEN 25 MG/DL (7-18); CARBON DIOXIDE LEVEL 26 MEQ/L (21-32); CHLORIDE LEVEL 106 MEQ/L (98-107); CHOLESTEROL LEVEL 112 MG/DL (<200); CPK CREATINE PHOSPHOKINASE 115 U/L (39-308); CREATININE FOR GFR 1.08 MG/DL (0.70-1.30); FREE T4 0.92 NG/DL (0.76-1.46); GLOMERULAR FILTRATION RATE > 60.0 (>42); GLUCOSE, FASTING 118 MG/DL (70-100); HDL CHOLESTEROL 35 MG/DL (>40); LDL CHOLESTEROL 18 MG/DL (<100); MAGNESIUM LEVEL 2.2 MG/DL (1.8-2.4); NON-HDL-C 77 MG/DL; POTASSIUM SERUM 5.2 MEQ/L (3.5-5.1); SODIUM LEVEL 138 MEQ/L (136-145); TOTAL PROTEIN 7.3 GM/DL (6.4-8.2); TRIGLYCERIDES LEVEL 294 MG/DL (<150)
== END ==
LOC: M SFHCPLAZ 10:14
PROVIDERS: ATTEND Family Medicine
DX: E11.9 Type 2 diabetes mellitus without complications (principal); I10 Essential (primary) hypertension; G31.84 Mild cognitive impairment of uncertain or unknown etiology; K76.0 Fatty (change of) liver, not elsewhere classified; E78.5 Hyperlipidemia, unspecified; G45.9 Transient cerebral ischemic attack, unspecified; Z12.5 Encounter for screening for malignant neoplasm of prostate
CPT/HCPCS: 36415; 80053; 80061; 82105; 82140; 82172; 82550; 82607; 83010; 83036; 83735; 83883; 84439; 84443; 85610; 85730; G0103

== ENCOUNTER → 2020-05-30 | Outpatient (REF) | payer MEDICARE ==
[~2020-05-30] MED LIST changes: -ASPI81TA85 PO; +ASPI81TA86 PO
[2020-05-30 10:06] LABS: BASO # 0.1 10^3/uL (0.0-0.2); BASO % 0.8 % (0.0-1.0); EOS # 0.3 10^3/uL (0.0-0.5); EOS % 4.9 % (0.0-3.0); HEMATOCRIT 48.2 % (42.0-52.0); HEMOGLOBIN 15.6 g/dl (13.5-17.5); LYMPH # 1.8 10^3/uL (1.5-5.0); LYMPH % 28.8 % (24.0-44.0); MEAN CORPUSCULAR HEMOGLOBIN 30.4 pg (27.0-33.0); MEAN CORPUSCULAR HGB CONC 32.4 g/dl (32.0-36.5); MONO # 0.5 10^3/uL (0.0-0.8); MONO % 7.7 % (0.0-5.0); NEUTROPHILS # 3.5 10^3/uL (1.5-8.5); NEUTROPHILS % 57.3 % (36.0-66.0); PLATELET COUNT, AUTOMATED 175 10^3/uL (150-450); RED BLOOD COUNT 5.13 10^6/uL (4.30-6.10); WHITE BLOOD COUNT 6.1 10^3/uL (4.0-10.0)
[2020-05-30 10:39] LABS: HEMOGLOBIN A1c 6.6 %
[2020-05-30 10:46] LABS: ALBUMIN 4.1 GM/DL (3.2-5.2); ALT/SGPT 33 U/L (12-78); BILIRUBIN,TOTAL 1.5 MG/DL (0.2-1.0); BLOOD UREA NITROGEN 21 MG/DL (7-18); CALCIUM LEVEL 9.2 MG/DL (8.8-10.2); CARBON DIOXIDE LEVEL 28 MEQ/L (21-32); CHLORIDE LEVEL 106 MEQ/L (98-107); CHOLESTEROL LEVEL 129 MG/DL (<200); CHOLESTEROL RISK RATIO 3.486 (<5); CREATININE FOR GFR 1.09 MG/DL (0.70-1.30); FREE T4 0.85 NG/DL (0.76-1.46); GLOMERULAR FILTRATION RATE > 60.0 (>42); GLUCOSE, FASTING 164 MG/DL (70-100); HDL CHOLESTEROL 37 MG/DL (>40); LDL CHOLESTEROL 24 MG/DL (<100); NON-HDL-C 92 MG/DL; POTASSIUM SERUM 4.5 MEQ/L (3.5-5.1); SODIUM LEVEL 140 MEQ/L (136-145); TOTAL PROTEIN 7.1 GM/DL (6.4-8.2); TRIGLYCERIDES LEVEL 340 MG/DL (<150)
== END ==
LOC: M SFHCPLAZ 09:12
PROVIDERS: ATTEND Family Medicine
DX: I10 Essential (primary) hypertension (principal); E78.5 Hyperlipidemia, unspecified; E11.9 Type 2 diabetes mellitus without complications; N20.0 Calculus of kidney; K76.0 Fatty (change of) liver, not elsewhere classified; Z12.5 Encounter for screening for malignant neoplasm of prostate
CPT/HCPCS: 36415; 80053; 80061; 83036; 83525; 84439; 84443; 85025; G0103

== ENCOUNTER 2020-06-08 23:35 | Emergency (ER) | payer MEDICARE ==
[~2020-06-08] VITALS: Ht 177.8 cm; Wt 84.1 kg
[2020-06-09] MEDS ORDERED: amLODIPine 5 MG TAB PO ONE (00:15)
[2020-06-09 00:27] LABS: BLOOD UREA NITROGEN 18 MG/DL (7-18); CARBON DIOXIDE LEVEL 28 MEQ/L (21-32); CHLORIDE LEVEL 106 MEQ/L (98-107); CK-MB VALUE MASS 1.6 NG/ML (<3.6); CPK CREATINE PHOSPHOKINASE 91 U/L (39-308); CREATININE FOR GFR 0.94 MG/DL (0.70-1.30); GLOMERULAR FILTRATION RATE > 60.0 (>42); GLUCOSE, FASTING 117 MG/DL (70-100); MB/CK RELATIVE INDEX 1.76 (< OR =4); SODIUM LEVEL 139 MEQ/L (136-145); TROPONIN I < 0.02 NG/ML (< 0.10)
[2020-06-09 00:31] VITALS: BP 170/83
[2020-06-09 00:33] LABS: BASO # 0.1 10^3/uL (0.0-0.2); BASO % 0.6 % (0.0-1.0); EOS # 0.3 10^3/uL (0.0-0.5); HEMATOCRIT 45.6 % (42.0-52.0); HEMOGLOBIN 15.2 g/dl (13.5-17.5); LYMPH # 1.9 10^3/uL (1.5-5.0); LYMPH % 25.1 % (24.0-44.0); MEAN CORPUSCULAR HEMOGLOBIN 30.8 pg (27.0-33.0); MEAN CORPUSCULAR HGB CONC 33.3 g/dl (32.0-36.5); MEAN CORPUSCULAR VOLUME 92.5 fl (80.0-96.0); MONO # 0.7 10^3/uL (0.0-0.8); MONO % 8.8 % (0.0-5.0); NEUTROPHILS # 4.7 10^3/uL (1.5-8.5); NEUTROPHILS % 61.2 % (36.0-66.0); PLATELET COUNT, AUTOMATED 165 10^3/uL (150-450); RED BLOOD COUNT 4.93 10^6/uL (4.30-6.10); WHITE BLOOD COUNT 7.7 10^3/uL (4.0-10.0)
--- NOTE | 2020-06-09 00:35 | REPVR ---
PROCEDURE INFORMATION: Exam: XR Chest, 1 View Exam date and time: 06/09/2020 12:25 AM Age: 74 years old Clinical indication: Other: Chest pain TECHNIQUE: Imaging protocol: XR of the chest Views: 1 view. COMPARISON: CR PORTABLE CHEST X-RAY 2018-11-07 14:00 FINDINGS: Lungs: Unremarkable. No consolidation. Pleural space: Unremarkable. No pleural effusion. No pneumothorax. Heart/Mediastinum: Unremarkable. No cardiomegaly. Bones/joints: Unremarkable. IMPRESSION: No acute findings. Electronically signed by: Ulises Ham On 06/09/2020 00:35:31 AM
[2020-06-09 01:00] VITALS: BP 174/86
[2020-06-09] MEDS ORDERED: NORV5TAB PO (01:09)
--- NOTE | 2020-06-09 06:41 | ECGEPIP ---
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
== END 2020-06-09 01:20 | disposition home or self-care (01) ==
LOC: M ED 23:35
DX: I16.0 Hypertensive urgency (principal); R00.1 Bradycardia, unspecified; E11.9 Type 2 diabetes mellitus without complications; Z86.73 Personal history of transient ischemic attack (TIA), and cerebral infarction without residual deficits; Z79.82 Long term (current) use of aspirin; Z79.899 Other long term (current) drug therapy

== ENCOUNTER → 2020-07-02 | Outpatient (CLI) | payer MEDICARE ==
[~2020-07-02] MED LIST changes: +NORV5TAB PO
[2020-07-02 08:15] LABS: BASO # 0.1 10^3/uL (0.0-0.2); BASO % 0.7 % (0.0-1.0); EOS # 0.2 10^3/uL (0.0-0.5); EOS % 3.2 % (0.0-3.0); HEMATOCRIT 48.1 % (42.0-52.0); LYMPH % 28.1 % (24.0-44.0); MEAN CORPUSCULAR HEMOGLOBIN 31.2 pg (27.0-33.0); MEAN CORPUSCULAR HGB CONC 33.3 g/dl (32.0-36.5); MEAN CORPUSCULAR VOLUME 93.8 fl (80.0-96.0); MONO # 0.5 10^3/uL (0.0-0.8); MONO % 7.5 % (0.0-5.0); NEUTROPHILS # 4.2 10^3/uL (1.5-8.5); NEUTROPHILS % 60.1 % (36.0-66.0); PLATELET COUNT, AUTOMATED 187 10^3/uL (150-450); RED BLOOD COUNT 5.13 10^6/uL (4.30-6.10); WHITE BLOOD COUNT 6.9 10^3/uL (4.0-10.0)
[2020-07-02 08:48] LABS: ALBUMIN 3.9 GM/DL (3.2-5.2); ALT/SGPT 45 U/L (12-78); BILIRUBIN,TOTAL 0.8 MG/DL (0.2-1.0); BLOOD UREA NITROGEN 23 MG/DL (7-18); CALCIUM LEVEL 9.1 MG/DL (8.8-10.2); CARBON DIOXIDE LEVEL 28 MEQ/L (21-32); CHLORIDE LEVEL 108 MEQ/L (98-107); CHOLESTEROL LEVEL 100 MG/DL (<200); CHOLESTEROL RISK RATIO 3.225 (<5); CREATININE FOR GFR 1.14 MG/DL (0.70-1.30); FREE T4 0.89 NG/DL (0.76-1.46); GLOMERULAR FILTRATION RATE > 60.0 (>42); GLUCOSE, FASTING 149 MG/DL (70-100); HDL CHOLESTEROL 31 MG/DL (>40); LDL CHOLESTEROL 32 MG/DL (<100); NON-HDL-C 69 MG/DL; POTASSIUM SERUM 4.8 MEQ/L (3.5-5.1); SODIUM LEVEL 141 MEQ/L (136-145); TOTAL PROTEIN 7.1 GM/DL (6.4-8.2); TRIGLYCERIDES LEVEL 186 MG/DL (<150)
--- NOTE | 2020-07-02 09:59 | REP ---
INDICATION: ALCOHOL INDUCED FATTY LIVER- LABS 1ST. COMPARISON: Abdomen pelvis CT without IV contrast dated 01/21/2016. TECHNIQUE: Right upper quadrant abdominal ultrasound. FINDINGS: There is no cholelithiasis, gallbladder wall thickening or pericholecystic fluid. There is no intrahepatic or extrahepatic biliary duct dilatation. The common biliary duct measures 3.3 mm in diameter. The hepatic parenchyma is hyperechoic compatible with hepato steatosis. This was also identified on the comparison CT. There are no solid or cystic hepatic masses. The liver is enlarged measuring 8.9 cm craniocaudad in the midclavicular line. The visualized areas of the pancreatic head and body are unremarkable. The tail is obscured by bowel gas. The right kidney is normal size measuring 11.7 x 5.6 x 5.4 cm. There is a right renal upper pole cyst measuring 6.3 x 5.0 x 5.0 cm, similar to the comparison CT. No solid right renal mass is identified. There are 2 small echogenic right renal foci, likely calculi 1 measuring up to 7.1 mm and the other measuring up to 11.5 mm. There is no hydronephrosis. There is no right upper quadrant abdominal free fluid. IMPRESSION: Hepato steatosis. Hepatomegaly. Two nonobstructive right renal calculi. Right renal upper pole cyst. 1. Pancreatic tail obscured by bowel gas. <Electronically signed by Tray Lincoln > 07/02/20 [id number]
[2020-07-02 11:14] LABS: HEMOGLOBIN A1c 6.8 %
== END ==
LOC: M RAD 07:29
PROVIDERS: ATTEND Family Medicine
DX: K70.0 Alcoholic fatty liver (principal); I10 Essential (primary) hypertension; E78.5 Hyperlipidemia, unspecified; E11.9 Type 2 diabetes mellitus without complications; N20.0 Calculus of kidney; K76.0 Fatty (change of) liver, not elsewhere classified; Z12.5 Encounter for screening for malignant neoplasm of prostate
CPT/HCPCS: 36415; 76705; 80053; 80061; 83036; 83525; 84439; 84443; 85025; G0103

== ENCOUNTER → 2020-09-06 | Outpatient (REF) | payer MEDICARE ==
[2020-09-06 12:24] LABS: ALBUMIN 3.5 GM/DL (3.2-5.2); ALT/SGPT 44 U/L (12-78); BILIRUBIN,DIRECT 0.3 MG/DL (0.0-0.2); BILIRUBIN,TOTAL 1.2 MG/DL (0.2-1.0); BLOOD UREA NITROGEN 22 MG/DL (7-18); CALCIUM LEVEL 9.1 MG/DL (8.8-10.2); CARBON DIOXIDE LEVEL 29 MEQ/L (21-32); CHLORIDE LEVEL 101 MEQ/L (98-107); CREATININE FOR GFR 1.07 MG/DL (0.70-1.30); GLOMERULAR FILTRATION RATE > 60.0 (>42); GLUCOSE, FASTING 114 MG/DL (70-100); POTASSIUM SERUM 4.8 MEQ/L (3.5-5.1); SODIUM LEVEL 136 MEQ/L (136-145); TOTAL PROTEIN 7.2 GM/DL (6.4-8.2)
[2020-09-06 12:28] LABS: PTH INTACT 46.7 PG/ML (18.5-88.0); TOTAL 25(OH) VITAMIN D 44.5 NG/ML (30.0-100.0)
[2020-09-08 06:36] LABS: PSA % FREE 31.7 % (.); PSA FREE 1.3 ng/mL; PSA TOTAL 4.1 ng/mL (0.0-4.0)
[2020-09-10 10:09] LABS: ALBUMIN 3.93 GM/DL (3.29-5.55); ALBUMIN % 54.6 % (55.8-66.1); ALPHA-1-GLOBULIN % 4.2 % (2.9-4.9); ALPHA-2-GLOBULINS % 13.9 % (7.1-11.8); BETA-1-GLOBULINS 0.45 GM/DL (0.28-0.60); BETA-1-GLOBULINS % 6.2 % (4.7-7.2); BETA-2-GLOBULINS 0.45 GM/DL (0.19-0.55); BETA-2-GLOBULINS % 6.2 % (3.2-6.5); GAMMA GLOBULIN % 14.9 % (11.1-18.8); GAMMA GLOBULINS 1.07 GM/DL (0.65-1.58)
== END ==
LOC: M PLALAB 09:42
PROVIDERS: ATTEND Family Medicine
DX: K70.0 Alcoholic fatty liver (principal); I10 Essential (primary) hypertension; E11.9 Type 2 diabetes mellitus without complications; D75.89 Other specified diseases of blood and blood-forming organs; Z12.5 Encounter for screening for malignant neoplasm of prostate; E55.9 Vitamin D deficiency, unspecified; R97.20 Elevated prostate specific antigen [PSA]

== ENCOUNTER → 2021-02-03 | Outpatient (CLI) | payer MEDICARE ==
[2021-02-03 10:56] LABS: HEMOGLOBIN A1c 7.3 %
[2021-02-03 11:04] LABS: ALBUMIN 3.8 GM/DL (3.2-5.2); ALT/SGPT 34 U/L (12-78); BLOOD UREA NITROGEN 23 MG/DL (7-18); CALCIUM LEVEL 9.5 MG/DL (8.8-10.2); CARBON DIOXIDE LEVEL 29 MEQ/L (21-32); CHLORIDE LEVEL 104 MEQ/L (98-107); CHOLESTEROL LEVEL 123 MG/DL (<200); CHOLESTEROL RISK RATIO 3.514 (<5); CREATININE FOR GFR 1.13 MG/DL (0.70-1.30); GLOMERULAR FILTRATION RATE > 60.0 (>42); GLUCOSE, FASTING 170 MG/DL (70-100); HDL CHOLESTEROL 35 MG/DL (>40); LDL CHOLESTEROL 26 MG/DL (<100); NON-HDL-C 88 MG/DL; NT-PRO BNP 57 PG/ML (<450); POTASSIUM SERUM 4.6 MEQ/L (3.5-5.1); SODIUM LEVEL 139 MEQ/L (136-145); TOTAL PROTEIN 7.4 GM/DL (6.4-8.2); TRIGLYCERIDES LEVEL 308 MG/DL (<150)
[2021-02-03 11:11] LABS: TOTAL 25(OH) VITAMIN D 43.1 NG/ML (30.0-100.0)
== END ==
LOC: M PLALAB 08:22
PROVIDERS: ATTEND Family Medicine
DX: E78.5 Hyperlipidemia, unspecified (principal); E11.9 Type 2 diabetes mellitus without complications; I10 Essential (primary) hypertension; E55.9 Vitamin D deficiency, unspecified; Z12.5 Encounter for screening for malignant neoplasm of prostate; Z79.899 Other long term (current) drug therapy
CPT/HCPCS: 36415; 80053; 80061; 82306; 83036; 83525; 83880; 83970; G0103

== ENCOUNTER → 2021-02-25 | Outpatient (CLI) | payer MEDICARE ==
--- NOTE | 2021-02-25 14:25 | REP ---
INDICATION: NEPHROLITHIASIS. COMPARISON: 01/21/2016 the latest prior also without contrast TECHNIQUE: Standard helical technique without intravenous or oral bowel preparatory contrast FINDINGS: The lung bases are unchanged. Hepatic and splenic densities are within normal limits. There are no choleliths. There are multiple bilateral nephroliths. There is no obstructive phenomena. There are no ureteroliths. There are no urinary bladder calcifications. The right renal cyst seen previously now measures 6.8 cm previously 4.7 cm. There is nodular thickening of the left adrenal gland status quo. The pancreas is unchanged. The abdominal aorta and para-aortic regions are unchanged. There is no free fluid or free air. Limited evaluation of the bowel loops and the mesenteries show no gross abnormalities or significant changes from the prior exam. The osseous structures are stable and intact. There is an unchanged grade 1 L4 upon L5 spondylolisthesis. IMPRESSION: 1. Nonobstructing bilateral nephroliths. 2. Bosniak class 1 right renal cyst as described above. 3. Other findings as described above. <Electronically signed by Skyler Mcfarlane > 02/25/21 [id number]
== END ==
LOC: M PLAIMG 13:19
PROVIDERS: ATTEND Family Medicine
DX: N20.0 Calculus of kidney (principal); N28.1 Cyst of kidney, acquired

== ENCOUNTER → 2021-03-12 | Outpatient (CLI) | payer MEDICARE ==
[~2021-03-12] MED LIST changes: +OXYB5TAB10 PO
== END ==
LOC: M LABSMTC 09:45
PROVIDERS: ATTEND Anesthesiology
DX: Z01.812 Encounter for preprocedural laboratory examination (principal); Z20.822 Contact with and (suspected) exposure to COVID-19

== ENCOUNTER 2021-03-17 07:46 | Day surgery (SDC) | payer MEDICARE ==
[~2021-03-17] VITALS: Ht 177.8 cm; Wt 83.9 kg
[~2021-03-17 07:46] MED LIST changes: +NS 1,000 ML IV ONE
[2021-03-17] MEDS ORDERED: propofoL 200 MG/20 ML VIAL As Ordered ONE ×2 (09:02→09:34)
[2021-03-17] MEDS ORDERED: LIDOCAINE 2% 100MG/5ML SDV (FOR ANES.) As Ordered ONE (09:34)
[2021-03-17 10:05] VITALS: BP 119/63
== END 2021-03-17 10:13 | disposition home or self-care (01) ==
LOC: M OPP 07:46
PROVIDERS: ATTEND Internal Medicine Gastroenterology
DX: Z12.11 Encounter for screening for malignant neoplasm of colon (principal); K63.3 Ulcer of intestine; K64.0 First degree hemorrhoids; Z79.82 Long term (current) use of aspirin; Z79.899 Other long term (current) drug therapy; Z88.8 Allergy status to other drugs, medicaments and biological substances

== ENCOUNTER → 2021-06-19 | Outpatient (CLI) | payer MEDICARE ==
[~2021-06-19] MED LIST changes: -NS 1,000 ML IV ONE
[2021-06-19 13:59] LABS: BASO # 0.1 10^3/uL (0.0-0.2); BASO % 0.6 % (0.0-1.0); EOS # 0.4 10^3/uL (0.0-0.5); EOS % 4.8 % (0.0-3.0); HEMATOCRIT 44.5 % (42.0-52.0); HEMOGLOBIN 14.7 g/dl (13.5-17.5); LYMPH # 2.1 10^3/uL (1.5-5.0); LYMPH % 26.9 % (24.0-44.0); MEAN CORPUSCULAR HEMOGLOBIN 31.5 pg (27.0-33.0); MEAN CORPUSCULAR VOLUME 95.5 fl (80.0-96.0); MONO # 0.7 10^3/uL (0.0-0.8); MONO % 8.7 % (2.0-8.0); NEUTROPHILS # 4.5 10^3/uL (1.5-8.5); NEUTROPHILS % 58.6 % (36.0-66.0); PLATELET COUNT, AUTOMATED 173 10^3/uL (150-450); RED BLOOD COUNT 4.66 10^6/uL (4.30-6.10); WHITE BLOOD COUNT 7.7 10^3/uL (4.0-10.0)
[2021-06-19 14:08] LABS: APPEARANCE, URINE CLEAR (CLEAR); BACTERIA, URINE AUTO NEGATIVE (NEGATIVE); BILIRUBIN, URINE AUTO NEGATIVE (NEGATIVE); BLOOD, URINE BLOOD NEGATIVE (NEGATIVE); COLOR, URINE STRAW (YELLOW); GLUCOSE, URINE (UA) AUTO 3+ mg/dL (NEGATIVE); KETONE, URINE AUTO NEGATIVE (NEGATIVE); LEUKOCYTE ESTERASE, URINE AUTO NEGATIVE (NEGATIVE); NITRITE, URINE AUTO NEGATIVE (NEGATIVE); PROTEIN, URINE AUTO NEGATIVE (NEGATIVE); RBC, URINE AUTO 0 /HPF (0-3); SPECIFIC GRAVITY URINE AUTO 1.021 (1.002-1.035); SQUAMOUS EPITHELIAL CELL UR AU 0 /HPF (0-6); UROBILINOGEN, URINE AUTO 0.2 mg/dL (0.0-2.0); WBC, URINE AUTO 1 /HPF (0-3)
[2021-06-19 14:21] LABS: HEMOGLOBIN A1c 6.9 %
[2021-06-19 14:24] LABS: CREATININE, URINE 65.4 MG/DL; MALB URINE SIEMENS < 5.0 MG/L; MAU/CREAT RATIO 7.6 MCG/MG (0.0-30.0)
[2021-06-19 14:27] LABS: ALBUMIN 3.8 GM/DL (3.2-5.2); CALCIUM LEVEL 9.1 MG/DL (8.8-10.2); CREATININE FOR GFR 1.33 MG/DL (0.70-1.30); GLOMERULAR FILTRATION RATE 55.7 (>42); POTASSIUM SERUM 4.6 MEQ/L (3.5-5.1); TOTAL PROTEIN 7.1 GM/DL (6.4-8.2)
== END ==
LOC: M PLALAB 09:42
PROVIDERS: ATTEND Family Medicine
DX: E11.9 Type 2 diabetes mellitus without complications (principal); I10 Essential (primary) hypertension

== ENCOUNTER → 2021-11-17 | Outpatient (CLI) | payer MEDICARE ==
[~2021-11-17] MED LIST changes: +ASPI-255 PO; +ASPI81TA26 PO; +CHLO125TA PO; +DICL20GE TP; +GABA-1171 PO; +JARD1TAB PO; +MULTTAB12 PO; +ROSU20TA5 PO; +SITA50TAB PO; +TELM1TAB33 PO; +VITA-243 PO; +VITA100093 PO; +VITA400C53 PO; +ZINC1TAB2 PO
== END ==
LOC: M LABSMTC 09:21
PROVIDERS: ATTEND Anesthesiology
DX: Z01.812 Encounter for preprocedural laboratory examination (principal); Z20.822 Contact with and (suspected) exposure to COVID-19

== ENCOUNTER → 2021-11-17 | Outpatient (CLI) | payer MEDICARE ==
[~2021-11-17] MED LIST changes: +OXYC1TAB23 PO
[2021-11-17 14:46] LABS: BASO # 0.1 10^3/uL (0.0-0.2); BASO % 0.8 % (0.0-1.0); EOS # 0.4 10^3/uL (0.0-0.5); EOS % 5.1 % (0.0-3.0); HEMATOCRIT 47.1 % (42.0-52.0); HEMOGLOBIN 15.6 g/dl (13.5-17.5); LYMPH # 2.1 10^3/uL (1.5-5.0); LYMPH % 26.6 % (24.0-44.0); MEAN CORPUSCULAR HEMOGLOBIN 31.6 pg (27.0-33.0); MEAN CORPUSCULAR HGB CONC 33.1 g/dl (32.0-36.5); MEAN CORPUSCULAR VOLUME 95.5 fl (80.0-96.0); MONO # 0.7 10^3/uL (0.0-0.8); MONO % 8.2 % (2.0-8.0); NEUTROPHILS # 4.7 10^3/uL (1.5-8.5); PLATELET COUNT, AUTOMATED 184 10^3/uL (150-450); RED BLOOD COUNT 4.93 10^6/uL (4.30-6.10)
[2021-11-17 14:56] LABS: APPEARANCE, URINE CLEAR (CLEAR); BACTERIA, URINE AUTO NEGATIVE (NEGATIVE); BILIRUBIN, URINE AUTO NEGATIVE (NEGATIVE); BLOOD, URINE BLOOD NEGATIVE (NEGATIVE); COLOR, URINE YELLOW (YELLOW); GLUCOSE, URINE (UA) AUTO 3+ mg/dL (NEGATIVE); KETONE, URINE AUTO NEGATIVE (NEGATIVE); LEUKOCYTE ESTERASE, URINE AUTO NEGATIVE (NEGATIVE); NITRITE, URINE AUTO NEGATIVE (NEGATIVE); PROTEIN, URINE AUTO NEGATIVE (NEGATIVE); RBC, URINE AUTO 2 /HPF (0-3); SPECIFIC GRAVITY URINE AUTO 1.022 (1.002-1.035); SQUAMOUS EPITHELIAL CELL UR AU 0 /HPF (0-6); UROBILINOGEN, URINE AUTO 0.2 mg/dL (0.0-2.0); WBC, URINE AUTO 2 /HPF (0-3)
[2021-11-17 15:11] LABS: BLOOD UREA NITROGEN 24 MG/DL (7-18); CALCIUM LEVEL 9.2 MG/DL (8.8-10.2); CARBON DIOXIDE LEVEL 27 MEQ/L (21-32); CHLORIDE LEVEL 105 MEQ/L (98-107); CREATININE FOR GFR 1.19 MG/DL (0.70-1.30); GLOMERULAR FILTRATION RATE > 60.0 (>42); GLUCOSE, FASTING 125 MG/DL (70-100); POTASSIUM SERUM 4.2 MEQ/L (3.5-5.1); SODIUM LEVEL 138 MEQ/L (136-145)
== END ==
LOC: M PLALAB 09:35
PROVIDERS: ATTEND Physician Assistant
DX: N20.0 Calculus of kidney (principal)

== ENCOUNTER → 2021-11-19 | Outpatient (CLI) | payer MEDICARE | LOC: M RAD 10:09 | PROVIDERS: ATTEND Physician Assistant | DX: Z01.818 Encounter for other preprocedural examination (principal); I70.0 Atherosclerosis of aorta; R00.1 Bradycardia, unspecified ==

== ENCOUNTER 2021-11-20 06:07 | Day surgery (SDC) | payer MEDICARE ==
[~2021-11-20] VITALS: Ht 177.8 cm; Wt 85.8 kg
[~2021-11-20 06:07] MED LIST changes: +LR 1,000 ML IV ONE; -OXYC1TAB23 PO; +ceFAZolin SOD 2 GM in IV 1 EA IV ONE
[2021-11-20] MEDS ORDERED: OXYC1TAB23 PO (09:13)
[2021-11-20] MEDS ORDERED: FLOM0.4C39 PO (09:13)
[2021-11-20] MEDS ORDERED: MIDAZOLAM INJ 2MG/2ML VIAL (J2250 PER 1MG) As Ordered ONE (09:39)
[2021-11-20] MEDS ORDERED: fentaNYL 100 MCG/2 ML INJECTION As Ordered ONE (09:39)
[2021-11-20] MEDS ORDERED: KETOROLAC 60MG 2ML VIAL As Ordered ONE (09:41)
[2021-11-20] MEDS ORDERED: LIDOCAINE 2% 100MG/5ML SDV (FOR ANES.) As Ordered ONE (09:41)
[2021-11-20] MEDS ORDERED: propofoL 200 MG/20 ML VIAL As Ordered ONE (09:41)
[2021-11-20] MEDS ORDERED: ePHEDrine SULFATE 25 MG/5 ML(5MG/ML) SYRINGE As Ordered ONE (09:44)
[2021-11-20 10:54] VITALS: BP 138/66
== END 2021-11-20 10:55 | disposition home or self-care (01) ==
LOC: M SDC 06:07
PROVIDERS: ATTEND Urology
DX: N20.0 Calculus of kidney (principal); I10 Essential (primary) hypertension; E11.9 Type 2 diabetes mellitus without complications; Z79.82 Long term (current) use of aspirin; Z79.84 Long term (current) use of oral hypoglycemic drugs; Z79.899 Other long term (current) drug therapy
CPT/HCPCS: 50590; J0690; J1885; J2250; J3010

== ENCOUNTER → 2021-11-28 | Outpatient (REF) | payer MEDICARE ==
[~2021-11-28] MED LIST changes: -LR 1,000 ML IV ONE; +OXYC1TAB23 PO; -ceFAZolin SOD 2 GM in IV 1 EA IV ONE
== END ==
LOC: M SMT 13:00
PROVIDERS: ATTEND Physician Assistant
DX: N20.0 Calculus of kidney (principal)

== ENCOUNTER → 2022-03-04 | Outpatient (CLI) | payer MEDICARE ==
[2022-03-04 11:22] LABS: INR 0.96; PROTHROMBIN TIME 13.2 SECONDS (12.7-14.5)
[2022-03-04 11:23] LABS: PARTIAL THROMBOPLASTIN TIME 30.4 SECONDS (25.9-37.0)
[2022-03-04 11:24] LABS: HEMOGLOBIN A1c 6.5 %
[2022-03-04 11:45] LABS: BILIRUBIN,TOTAL 0.9 MG/DL (0.2-1.0); CALCIUM LEVEL 9.5 MG/DL (8.8-10.2); CHOLESTEROL RISK RATIO 3.294 (<5); CREATININE FOR GFR 1.5 MG/DL (0.70-1.30); GLOMERULAR FILTRATION RATE 48.3 (>42); POTASSIUM SERUM 4.8 MEQ/L (3.5-5.1)
[2022-03-04 11:46] LABS: ALBUMIN 4.1 GM/DL (3.2-5.2); TOTAL PROTEIN 7.7 GM/DL (6.4-8.2)
== END ==
LOC: M PLALAB 08:23
PROVIDERS: ATTEND Family Medicine
DX: E11.9 Type 2 diabetes mellitus without complications (principal); I10 Essential (primary) hypertension; K70.0 Alcoholic fatty liver; D75.89 Other specified diseases of blood and blood-forming organs; Z12.5 Encounter for screening for malignant neoplasm of prostate; Z79.899 Other long term (current) drug therapy
CPT/HCPCS: 36415; 80053; 80061; 82105; 82140; 82607; 83036; 83880; 85610; 85730; G0103

== ENCOUNTER → 2022-05-20 | Outpatient (CLI) | payer MEDICARE | LOC: M RAD 11:32 | PROVIDERS: ATTEND Physician Assistant | DX: Z87.442 Personal history of urinary calculi (principal); N40.0 Benign prostatic hyperplasia without lower urinary tract symptoms; N28.1 Cyst of kidney, acquired ==

== ENCOUNTER 2022-08-10 08:50 | Emergency (ER) | payer MEDICARE ==
[~2022-08-10] VITALS: Ht 177.8 cm; Wt 85.5 kg
[2022-08-10 12:55] VITALS: BP 127/77
== END 2022-08-10 12:55 | disposition home or self-care (01) ==
LOC: M ED 08:50 → EDBD 08:50 → M ED 12:55
DX: M79.661 Pain in right lower leg (principal); E11.9 Type 2 diabetes mellitus without complications; I10 Essential (primary) hypertension; Z79.84 Long term (current) use of oral hypoglycemic drugs; Z79.899 Other long term (current) drug therapy

== ENCOUNTER → 2022-08-19 | Outpatient (CLI) | payer MEDICARE ==
[2022-08-19 15:01] LABS: BASO # 0.1 10^3/uL (0.0-0.2); BASO % 0.6 % (0.0-1.0); EOS # 0.2 10^3/uL (0.0-0.5); HEMOGLOBIN 16.3 g/dl (13.5-17.5); LYMPH % 24.2 % (24.0-44.0); MEAN CORPUSCULAR HEMOGLOBIN 31.3 pg (27.0-33.0); MEAN CORPUSCULAR HGB CONC 33.3 g/dl (32.0-36.5); MEAN CORPUSCULAR VOLUME 94.2 fl (80.0-96.0); MONO # 0.6 10^3/uL (0.0-0.8); MONO % 7.2 % (2.0-8.0); NEUTROPHILS # 5.3 10^3/uL (1.5-8.5); NEUTROPHILS % 65.8 % (36.0-66.0); PLATELET COUNT, AUTOMATED 191 10^3/uL (150-450); WHITE BLOOD COUNT 8.1 10^3/uL (4.0-10.0)
[2022-08-19 15:09] LABS: ALBUMIN 4.1 G/DL (3.2-5.2); BILIRUBIN,TOTAL 1.4 MG/DL (0.3-1.2); CALCIUM LEVEL 9.5 MG/DL (8.3-10.6); CREATININE FOR GFR 1.28 MG/DL (0.70-1.30); FERRITIN 40.8 NG/ML (10.5-307.3); POTASSIUM SERUM 5.1 MMOL/L (3.5-5.1); PTH INTACT 50.8 PG/ML (18.5-88.0); TOTAL PROTEIN 7.5 G/DL (5.7-8.2)
[2022-08-19 15:22] LABS: TOTAL PROTEIN,RANDOM URINE 9.2 MG/DL (0.0-14.0)
[2022-08-19 15:27] LABS: CREATININE,RANDOM URINE 70.8 MG/DL
[2022-08-19 16:16] LABS: HEMOGLOBIN A1c 6.2 % (4.0-6.0)
[2022-08-20 12:08] LABS: INSULIN LEVEL 7.4 uIU/mL (2.6-24.9); PSA TOTAL 3.9 ng/mL (0.0-4.0)
== END ==
LOC: M PLALAB 09:51
PROVIDERS: ATTEND Family Medicine
DX: Z12.5 Encounter for screening for malignant neoplasm of prostate (principal); E11.9 Type 2 diabetes mellitus without complications

== ENCOUNTER → 2022-09-18 | Outpatient (CLI) | payer MEDICARE | LOC: M WHC 08:53 | PROVIDERS: ATTEND Family Medicine | DX: K70.0 Alcoholic fatty liver (principal); N28.1 Cyst of kidney, acquired ==

== ENCOUNTER → 2022-11-24 | Outpatient (CLI) | payer MEDICARE ==
[2022-11-24 10:59] LABS: BASO # 0.1 10^3/uL (0.0-0.2); BASO % 0.6 % (0.0-1.0); EOS # 0.4 10^3/uL (0.0-0.5); EOS % 4.4 % (0.0-3.0); HEMATOCRIT 49.3 % (42.0-52.0); HEMOGLOBIN 16.5 g/dl (13.5-17.5); LYMPH # 1.9 10^3/uL (1.5-5.0); MEAN CORPUSCULAR HEMOGLOBIN 31.9 pg (27.0-33.0); MEAN CORPUSCULAR HGB CONC 33.5 g/dl (32.0-36.5); MEAN CORPUSCULAR VOLUME 95.2 fl (80.0-96.0); MONO # 0.6 10^3/uL (0.0-0.8); MONO % 7.1 % (2.0-8.0); NEUTROPHILS # 5.4 10^3/uL (1.5-8.5); NEUTROPHILS % 64.7 % (36.0-66.0); PLATELET COUNT, AUTOMATED 192 10^3/uL (150-450); RED BLOOD COUNT 5.18 10^6/uL (4.30-6.10); WHITE BLOOD COUNT 8.4 10^3/uL (4.0-10.0)
[2022-11-24 11:11] LABS: INR 0.94; PROTHROMBIN TIME 12.8 SECONDS (12.5-14.5)
[2022-11-24 11:12] LABS: PARTIAL THROMBOPLASTIN TIME 31.5 SECONDS (24.8-34.2)
[2022-11-24 11:24] LABS: HEMOGLOBIN A1c 6.9 % (4.0-6.0)
[2022-11-24 11:35] LABS: CHOLESTEROL RISK RATIO 3.65 (<5); HDL CHOLESTEROL 33.4 MG/DL (>40); NON-HDL-C 88.6 MG/DL
[2022-11-24 11:37] LABS: FERRITIN 24.9 NG/ML (10.5-307.3)
== END ==
LOC: M PLALAB 07:47
PROVIDERS: ATTEND Family Medicine
DX: K70.0 Alcoholic fatty liver (principal); E11.9 Type 2 diabetes mellitus without complications

== ENCOUNTER → 2022-12-03 | Outpatient (CLI) | payer MEDICARE ==
[2022-12-03 15:23] LABS: C REACTIVE PROTEIN QUANTITATIV < 0.40 MG/DL (<1.0)
[2022-12-03 15:25] LABS: ALBUMIN 4.2 G/DL (3.2-5.2); ALKALINE PHOSPHATASE 59 U/L (46-116); ALT/SGPT 30 U/L (7.0-40); AST/SGOT 28 U/L (<34); BLOOD UREA NITROGEN 28 MG/DL (9-23); CALCIUM LEVEL 9.7 MG/DL (8.3-10.6); CARBON DIOXIDE LEVEL 28 MMOL/L (20-31); CHLORIDE LEVEL 104 MMOL/L (98-107); CPK CREATINE PHOSPHOKINASE 96 U/L (46-171); CREATININE FOR GFR 1.14 MG/DL (0.70-1.30); GLOMERULAR FILTRATION RATE > 60.0 (>42); GLUCOSE, FASTING 133 MG/DL (74-106); POTASSIUM SERUM 4.4 MMOL/L (3.5-5.1); SODIUM LEVEL 140 MMOL/L (136-145); THYROID STIMULATING HORMONE 2.716 uIU/ML (0.55-4.78); TOTAL PROTEIN 7.3 G/DL (5.7-8.2)
[2022-12-03 15:26] LABS: VITAMIN B12 LEVEL 433 PG/ML (211-911)
[2022-12-05 21:09] LABS: CYCLIC CITRULLINATED PEPTIDE 6 units (0-19); IMMUNOTYPING SERUM IGA SO 317 mg/dL (61-437); IMMUNOTYPING SERUM IGM SO 110 mg/dL (15-143)
== END ==
LOC: M PLALAB 09:52
PROVIDERS: ATTEND Family Medicine
DX: N18.31 Chronic kidney disease, stage 3a (principal); R53.1 Weakness; D75.89 Other specified diseases of blood and blood-forming organs

== ENCOUNTER → 2023-04-30 | Outpatient (CLI) | payer MEDICARE ==
[~2023-04-30] MED LIST changes: -OXYB5TAB10 PO; +OXYB5TAB11 PO; -ROSU20TA5 PO; +ROSU20TA61 PO
[2023-04-30 08:36] LABS: BASO # 0.1 10^3/uL (0.0-0.2); BASO % 0.8 % (0.0-1.0); EOS # 0.2 10^3/uL (0.0-0.5); EOS % 3.1 % (0.0-3.0); HEMATOCRIT 44.9 % (42.0-52.0); HEMOGLOBIN 15.8 g/dl (13.5-17.5); LYMPH # 1.7 10^3/uL (1.5-5.0); LYMPH % 27.1 % (24.0-44.0); MEAN CORPUSCULAR HEMOGLOBIN 33.3 pg (27.0-33.0); MEAN CORPUSCULAR HGB CONC 35.2 g/dl (32.0-36.5); MEAN CORPUSCULAR VOLUME 94.5 fl (80.0-96.0); MONO # 0.5 10^3/uL (0.0-0.8); MONO % 7.8 % (2.0-8.0); NEUTROPHILS # 3.9 10^3/uL (1.5-8.5); NEUTROPHILS % 60.6 % (36.0-66.0); PLATELET COUNT, AUTOMATED 201 10^3/uL (150-450); RED BLOOD COUNT 4.75 10^6/uL (4.30-6.10); WHITE BLOOD COUNT 6.4 10^3/uL (4.0-10.0)
[2023-04-30 09:06] LABS: ALBUMIN 3.7 G/DL (3.2-5.2); BILIRUBIN,TOTAL 1.3 MG/DL (0.3-1.2); CALCIUM LEVEL 9.1 MG/DL (8.3-10.6); CREATININE FOR GFR 1.24 MG/DL (0.70-1.30); POTASSIUM SERUM 3.9 MMOL/L (3.5-5.1); TOTAL PROTEIN 6.8 G/DL (5.7-8.2)
[2023-04-30 09:08] LABS: HEMOGLOBIN A1c 6.4 % (4.0-6.0)
== END ==
LOC: M LAB 07:45 → M PLALAB 07:45
PROVIDERS: ATTEND Family Medicine
DX: I10 Essential (primary) hypertension (principal); R53.1 Weakness; E11.9 Type 2 diabetes mellitus without complications; K70.0 Alcoholic fatty liver

== ENCOUNTER → 2023-06-07 | Outpatient (CLI) | payer MEDICARE | LOC: M RAD 11:17 | PROVIDERS: ATTEND Physician Assistant | DX: N20.0 Calculus of kidney (principal) ==

== ENCOUNTER → 2023-06-15 | Outpatient (REF) | payer MEDICARE ==
[2023-06-15 18:04] LABS: APPEARANCE, URINE CLEAR (CLEAR); BACTERIA, URINE AUTO NEGATIVE (NEGATIVE); BILIRUBIN, URINE AUTO NEGATIVE (NEGATIVE); BLOOD, URINE BLOOD NEGATIVE (NEGATIVE); COLOR, URINE YELLOW (YELLOW); GLUCOSE, URINE (UA) AUTO 3+ mg/dL (NEGATIVE); KETONE, URINE AUTO NEGATIVE (NEGATIVE); LEUKOCYTE ESTERASE, URINE AUTO NEGATIVE (NEGATIVE); NITRITE, URINE AUTO NEGATIVE (NEGATIVE); PROTEIN, URINE AUTO NEGATIVE (NEGATIVE); RBC, URINE AUTO 0 /HPF (0-3); SPECIFIC GRAVITY URINE AUTO 1.025 (1.002-1.035); SQUAMOUS EPITHELIAL CELL UR AU 0 /HPF (0-6); UROBILINOGEN, URINE AUTO 0.2 mg/dL (0.0-2.0); WBC, URINE AUTO 0 /HPF (0-3)
== END ==
LOC: M SMT 17:29
PROVIDERS: ATTEND Physician Assistant
DX: R30.0 Dysuria (principal)

== ENCOUNTER → 2023-06-24 | Outpatient (CLI) | payer MEDICARE | LOC: M PLAIMG 08:47 | PROVIDERS: ATTEND Physician Assistant | DX: N20.0 Calculus of kidney (principal); N28.1 Cyst of kidney, acquired; D73.89 Other diseases of spleen ==

== ENCOUNTER → 2023-08-20 | Outpatient (REF) | payer MEDICARE | LOC: M SMT 16:49 | PROVIDERS: ATTEND Urology | DX: N21.0 Calculus in bladder (principal) ==

== ENCOUNTER → 2023-11-01 | Outpatient (CLI) | payer MEDICARE ==
[~2023-11-01] MED LIST changes: -OXYB5TAB11 PO; +OXYB5TAB14 PO
[2023-11-01 12:01] LABS: C REACTIVE PROTEIN QUANTITATIV < 0.40 MG/DL (<1.0)
[2023-11-01 12:02] LABS: ALBUMIN 4.1 G/DL (3.2-5.2); ALKALINE PHOSPHATASE 71 U/L (46-116); ALT/SGPT 40 U/L (7.0-40); AST/SGOT 25 U/L (<34); BILIRUBIN,TOTAL 0.5 MG/DL (0.3-1.2); BLOOD UREA NITROGEN 28 MG/DL (9-23); CALCIUM LEVEL 9.4 MG/DL (8.3-10.6); CARBON DIOXIDE LEVEL 28 MMOL/L (20-31); CHLORIDE LEVEL 102 MMOL/L (98-107); CREATININE FOR GFR 1.22 MG/DL (0.70-1.30); GLOMERULAR FILTRATION RATE > 60.0 (>42); GLUCOSE, FASTING 137 MG/DL (74-106); POTASSIUM SERUM 4.2 MMOL/L (3.5-5.1); SODIUM LEVEL 136 MMOL/L (136-145); TOTAL PROTEIN 7.2 G/DL (5.7-8.2)
[2023-11-01 12:03] LABS: VITAMIN B12 LEVEL 674 PG/ML (211-911)
[2023-11-01 12:04] LABS: FREE T4 0.97 NG/DL (0.89-1.76); THYROID STIMULATING HORMONE 6.053 uIU/ML (0.55-4.78)
[2023-11-01 12:08] LABS: CPK CREATINE PHOSPHOKINASE 68 U/L (46-171)
== END ==
LOC: M PLALAB 07:25
PROVIDERS: ATTEND Family Medicine
DX: N18.31 Chronic kidney disease, stage 3a (principal); D75.89 Other specified diseases of blood and blood-forming organs; R53.1 Weakness

== ENCOUNTER → 2023-11-01 | Outpatient (CLI) | payer MEDICARE ==
[2023-11-01 15:36] LABS: BASO # 0.1 10^3/uL (0.0-0.2); BASO % 0.6 % (0.0-1.0); EOS # 0.4 10^3/uL (0.0-0.5); EOS % 5.3 % (0.0-3.0); HEMATOCRIT 46.1 % (42.0-52.0); LYMPH # 2.4 10^3/uL (1.5-5.0); LYMPH % 30.4 % (24.0-44.0); MEAN CORPUSCULAR HEMOGLOBIN 33.5 pg (27.0-33.0); MEAN CORPUSCULAR HGB CONC 34.7 g/dl (32.0-36.5); MEAN CORPUSCULAR VOLUME 96.6 fl (80.0-96.0); MONO # 0.7 10^3/uL (0.0-0.8); MONO % 8.4 % (2.0-8.0); NEUTROPHILS # 4.3 10^3/uL (1.5-8.5); NEUTROPHILS % 54.9 % (36.0-66.0); PLATELET COUNT, AUTOMATED 183 10^3/uL (150-450); RED BLOOD COUNT 4.77 10^6/uL (4.30-6.10); WHITE BLOOD COUNT 7.9 10^3/uL (4.0-10.0)
[2023-11-01 15:48] LABS: URIC ACID 7.6 MG/DL (3.7-9.2)
[2023-11-01 15:49] LABS: D-DIMER QUANT 0.28 ug/mL (<0.5); INR 0.98; PARTIAL THROMBOPLASTIN TIME 29.6 SECONDS (24.8-34.2); PROTHROMBIN TIME 12.7 SECONDS (12.5-14.5)
== END ==
LOC: M PLALAB 14:29
PROVIDERS: ATTEND Family Medicine
DX: R07.9 Chest pain, unspecified (principal); K74.00 Hepatic fibrosis, unspecified; N20.0 Calculus of kidney

== ENCOUNTER → 2024-02-17 | Outpatient (CLI) | payer MEDICARE ==
[2024-02-17 15:11] LABS: BASO % 0.5 % (0.0-1.0); EOS # 0.5 10^3/uL (0.0-0.5); EOS % 5.9 % (0.0-3.0); HEMATOCRIT 47.2 % (42.0-52.0); HEMOGLOBIN 16.2 g/dl (13.5-17.5); LYMPH # 2.3 10^3/uL (1.5-5.0); LYMPH % 28.4 % (24.0-44.0); MEAN CORPUSCULAR HEMOGLOBIN 33.7 pg (27.0-33.0); MEAN CORPUSCULAR HGB CONC 34.3 g/dl (32.0-36.5); MEAN CORPUSCULAR VOLUME 98.1 fl (80.0-96.0); MONO # 0.7 10^3/uL (0.0-0.8); MONO % 8.5 % (2.0-8.0); NEUTROPHILS # 4.6 10^3/uL (1.5-8.5); NEUTROPHILS % 56.3 % (36.0-66.0); PLATELET COUNT, AUTOMATED 208 10^3/uL (150-450); RED BLOOD COUNT 4.81 10^6/uL (4.30-6.10); WHITE BLOOD COUNT 8.2 10^3/uL (4.0-10.0)
[2024-02-17 15:25] LABS: INR 1.02; PARTIAL THROMBOPLASTIN TIME 29.1 SECONDS (24.8-34.2); PROTHROMBIN TIME 13.1 SECONDS (12.5-14.5)
[2024-02-17 15:27] LABS: HEMOGLOBIN A1c 6.2 % (4.0-6.0)
[2024-02-17 15:41] LABS: PSA SCREENING 4.09 NG/ML (< 4.00)
[2024-02-17 15:43] LABS: ALBUMIN 3.8 G/DL (3.2-5.2); ALKALINE PHOSPHATASE 73 U/L (46-116); ALT/SGPT 31 U/L (7.0-40); AST/SGOT 25 U/L (<34); BILIRUBIN,TOTAL 1.3 MG/DL (0.3-1.2); BLOOD UREA NITROGEN 19 MG/DL (9-23); CALCIUM LEVEL 9.4 MG/DL (8.3-10.6); CARBON DIOXIDE LEVEL 29 MMOL/L (20-31); CHLORIDE LEVEL 104 MMOL/L (98-107); CREATININE FOR GFR 1.06 MG/DL (0.70-1.30); GLOMERULAR FILTRATION RATE > 60.0 (>42); GLUCOSE, FASTING 102 MG/DL (74-106); POTASSIUM SERUM 4.2 MMOL/L (3.5-5.1); SODIUM LEVEL 138 MMOL/L (136-145); TOTAL PROTEIN 6.8 G/DL (5.7-8.2)
[2024-02-17 15:44] LABS: PTH INTACT 49.9 PG/ML (18.5-88.0)
[2024-02-17 15:45] LABS: FREE T4 1.01 NG/DL (0.89-1.76); THYROID STIMULATING HORMONE 3.254 uIU/ML (0.55-4.78); VITAMIN B12 LEVEL 678 PG/ML (211-911)
[2024-02-17 15:46] LABS: FERRITIN 60.5 NG/ML (10.5-307.3); TOTAL 25(OH) VITAMIN D 46.4 NG/ML (20.0-100.0)
== END ==
LOC: M PLALAB 11:57
PROVIDERS: ATTEND Family Medicine
DX: K74.00 Hepatic fibrosis, unspecified (principal); I10 Essential (primary) hypertension; E78.5 Hyperlipidemia, unspecified; E55.9 Vitamin D deficiency, unspecified; E11.9 Type 2 diabetes mellitus without complications; D75.89 Other specified diseases of blood and blood-forming organs; Z12.5 Encounter for screening for malignant neoplasm of prostate
CPT/HCPCS: 36415; 80053; 82306; 82607; 82728; 83036; 83970; 84439; 84443; 85025; 85610; 85730; G0103

== ENCOUNTER → 2024-04-27 | Outpatient (REF) | payer MEDICARE ==
[~2024-04-27] MED LIST changes: +BACT800T5 PO; -ROSU20TA61 PO; +ROSU20TA86 PO; +SILD100T PO
[2024-04-27 13:30] LABS: APPEARANCE, URINE CLEAR (CLEAR); BACTERIA, URINE AUTO NEGATIVE (NEGATIVE); BILIRUBIN, URINE AUTO NEGATIVE (NEGATIVE); BLOOD, URINE BLOOD NEGATIVE (NEGATIVE); COLOR, URINE YELLOW (YELLOW); GLUCOSE, URINE (UA) AUTO 3+ mg/dL (NEGATIVE); KETONE, URINE AUTO NEGATIVE (NEGATIVE); LEUKOCYTE ESTERASE, URINE AUTO NEGATIVE (NEGATIVE); MUCUS, URINE SMALL (NEGATIVE); NITRITE, URINE AUTO NEGATIVE (NEGATIVE); PROTEIN, URINE AUTO NEGATIVE (NEGATIVE); RBC, URINE AUTO 0 /HPF (0-3); SPECIFIC GRAVITY URINE AUTO 1.021 (1.002-1.035); SQUAMOUS EPITHELIAL CELL UR AU 0 /HPF (0-6); UROBILINOGEN, URINE AUTO 0.2 mg/dL (0.0-2.0); WBC, URINE AUTO 1 /HPF (0-3)
== END ==
LOC: M SMT 12:48
PROVIDERS: ATTEND Physician Assistant
DX: R35.0 Frequency of micturition (principal)

== ENCOUNTER 2024-04-29 16:02 | Emergency (ER) | payer MEDICARE ==
[~2024-04-29] VITALS: Ht 177.8 cm; Wt 83.0 kg
[~2024-04-29 16:02] MED LIST changes: -BACT800T5 PO; -SILD100T PO
[2024-04-29 16:13] VITALS: BP 177/84; TEMP 97.4; O2SAT 97
[2024-04-29] MEDS ORDERED: SILD100T PO (16:25)
[2024-04-29 16:58] LABS: BASO % 0.3 % (0.0-1.0); EOS # 0.1 10^3/uL (0.0-0.5); HEMOGLOBIN 17.2 g/dl (13.5-17.5); LYMPH # 1.9 10^3/uL (1.5-5.0); LYMPH % 12.8 % (24.0-44.0); MEAN CORPUSCULAR HEMOGLOBIN 33.2 pg (27.0-33.0); MEAN CORPUSCULAR HGB CONC 35.8 g/dl (32.0-36.5); MEAN CORPUSCULAR VOLUME 92.7 fl (80.0-96.0); MONO # 1.2 10^3/uL (0.0-0.8); MONO % 8.3 % (2.0-8.0); NEUTROPHILS # 11.3 10^3/uL (1.5-8.5); PLATELET COUNT, AUTOMATED 234 10^3/uL (150-450); RED BLOOD COUNT 5.18 10^6/uL (4.30-6.10); WHITE BLOOD COUNT 14.7 10^3/uL (4.0-10.0)
[2024-04-29] MEDS: LIDOCAINE 2% 5ML JELLY UROJET TOP ONE (17:10)
[2024-04-29] MEDS: MORPHINE 4 MG/ML 1ML VIAL IV ONE (17:10)
[2024-04-29] MEDS: NS 1,000 ML IV ONE (17:15)
[2024-04-29 17:29] LABS: ALBUMIN 4.3 G/DL (3.2-5.2); BILIRUBIN,DIRECT 0.5 MG/DL (<0.4); BILIRUBIN,TOTAL 1.7 MG/DL (0.3-1.2); TOTAL PROTEIN 7.7 G/DL (5.7-8.2)
[2024-04-29] MEDS: cefTRIAXone SOD 1 GM in D5W MINI-BAG PLUS 50 ML IV ONE (19:00)
[2024-04-29] MEDS ORDERED: BACT800T5 PO (19:29)
== END 2024-04-29 19:52 | disposition home or self-care (01) ==
LOC: M ED 16:02
DX: N10 Acute pyelonephritis (principal); Z79.899 Other long term (current) drug therapy
CPT/HCPCS: 51702; 74176; 80076; 81001; 83690; 85025; 87086; 96374; 96375; 99284; J0696

== ENCOUNTER → 2024-05-05 | Outpatient (CLI) | payer MEDICARE ==
[~2024-05-05] MED LIST changes: +BACT800T5 PO; +SILD100T PO
[2024-05-05 13:04] LABS: ALBUMIN 3.9 G/DL (3.2-5.2); BASO # 0.1 10^3/uL (0.0-0.2); BASO % 0.7 % (0.0-1.0); BILIRUBIN,TOTAL 1.1 MG/DL (0.3-1.2); CALCIUM LEVEL 9.6 MG/DL (8.3-10.6); CREATININE FOR GFR 1.51 MG/DL (0.70-1.30); EOS # 0.3 10^3/uL (0.0-0.5); EOS % 4.5 % (0.0-3.0); GLOMERULAR FILTRATION RATE 47.7 (>42); HEMATOCRIT 47.3 % (42.0-52.0); HEMOGLOBIN 16.2 g/dl (13.5-17.5); LYMPH # 2.1 10^3/uL (1.5-5.0); LYMPH % 27.6 % (24.0-44.0); MEAN CORPUSCULAR HEMOGLOBIN 33.4 pg (27.0-33.0); MEAN CORPUSCULAR HGB CONC 34.2 g/dl (32.0-36.5); MEAN CORPUSCULAR VOLUME 97.5 fl (80.0-96.0); MONO # 0.6 10^3/uL (0.0-0.8); MONO % 7.7 % (2.0-8.0); NEUTROPHILS # 4.5 10^3/uL (1.5-8.5); NEUTROPHILS % 59.2 % (36.0-66.0); PLATELET COUNT, AUTOMATED 220 10^3/uL (150-450); POTASSIUM SERUM 4.4 MMOL/L (3.5-5.1); RED BLOOD COUNT 4.85 10^6/uL (4.30-6.10); TOTAL PROTEIN 7.2 G/DL (5.7-8.2); WHITE BLOOD COUNT 7.6 10^3/uL (4.0-10.0)
== END ==
LOC: M PLALAB 10:30
PROVIDERS: ATTEND Family Medicine
DX: K74.00 Hepatic fibrosis, unspecified (principal); I10 Essential (primary) hypertension; E78.5 Hyperlipidemia, unspecified

== ENCOUNTER → 2024-05-15 | Outpatient (CLI) | payer MEDICARE ==
[~2024-05-15] MED LIST changes: +ASPI-1 PO; +AVOD0.5C PO; +TAMS1CAP17 PO
== END ==
LOC: M PLAIMG 09:51
PROVIDERS: ATTEND Internal Medicine Hematology
DX: Z01.818 Encounter for other preprocedural examination (principal); E11.9 Type 2 diabetes mellitus without complications

== ENCOUNTER 2024-05-24 11:24 | Day surgery (SDC) | payer MEDICARE ==
[~2024-05-24] VITALS: Ht 172.7 cm; Wt 81.2 kg
[~2024-05-24 11:24] MED LIST changes: +LIDOCAINE 2% 100MG/5ML SDV (FOR ANES.) As Ordered ONE; +ONDANSETRON 4MG 2ML VIAL As Ordered ONE; +fentaNYL 100 MCG/2 ML INJECTION As Ordered ONE; +propofoL 200 MG/20 ML VIAL As Ordered ONE
[2024-05-24] MEDS ORDERED: dexmedeTOMIDine (4MCG/ML)200MCG/50ML BTL (PRECEDEX) As Ordered ONE (11:34)
[2024-05-24] MEDS ORDERED: NS 250 ML IV SCH (11:55)
[2024-05-24] MEDS ORDERED: MIDAZOLAM INJ 2MG/2ML VIAL As Ordered ONE (12:11)
[2024-05-24] MEDS: ceFAZolin SOD 2 GM in IV 1 EA IV ONE (12:19)
[2024-05-24] MEDS ORDERED: GLYCOPYRROLATE INJ 0.2 MG/ML 2 ML VIAL As Ordered ONE (12:28)
[2024-05-24] MEDS ORDERED: NS 1,000 ML IV SCH (14:45)
[2024-05-24] MEDS ORDERED: fentaNYL 100 MCG/2 ML INJECTION IV PRN (14:45)
[2024-05-24] MEDS ORDERED: HYDROMORPHONE HCL 0.5 MG/ 0.5 ML SYRINGE IV PRN (14:45)
[2024-05-24] MEDS ORDERED: oxyCODONE 5MG TAB PO PRN (14:45)
[2024-05-24] MEDS ORDERED: ONDANSETRON 4MG 2ML VIAL IV PRN (14:45)
[2024-05-24] MEDS ORDERED: CIPR-249 PO (14:51)
[2024-05-24 15:45] VITALS: BP 135/82; TEMP 97.7; O2SAT 94
== END 2024-05-24 16:25 | disposition home or self-care (01) ==
LOC: M SDC 11:24
PROVIDERS: ATTEND Urology
DX: R33.9 Retention of urine, unspecified (principal); N40.1 Benign prostatic hyperplasia with lower urinary tract symptoms; E78.00 Pure hypercholesterolemia, unspecified; I10 Essential (primary) hypertension; E11.9 Type 2 diabetes mellitus without complications; F10.10 Alcohol abuse, uncomplicated; Z79.899 Other long term (current) drug therapy
CPT/HCPCS: 52601; J0690; J1100; J1596; J2250; J2405; J3010

== ENCOUNTER → 2024-07-28 | Outpatient (REF) | payer MEDICARE ==
[~2024-07-28] MED LIST changes: +CIPR-249 PO; -LIDOCAINE 2% 100MG/5ML SDV (FOR ANES.) As Ordered ONE; -ONDANSETRON 4MG 2ML VIAL As Ordered ONE; -fentaNYL 100 MCG/2 ML INJECTION As Ordered ONE; -propofoL 200 MG/20 ML VIAL As Ordered ONE
[2024-07-28 13:22] LABS: APPEARANCE, URINE CLOUDY (CLEAR); BACTERIA, URINE AUTO 1+ (NEGATIVE); BILIRUBIN, URINE AUTO NEGATIVE (NEGATIVE); BLOOD, URINE BLOOD 3+ (NEGATIVE); COLOR, URINE YELLOW (YELLOW); GLUCOSE, URINE (UA) AUTO 3+ mg/dL (NEGATIVE); KETONE, URINE AUTO NEGATIVE (NEGATIVE); LEUKOCYTE ESTERASE, URINE AUTO 3+ (NEGATIVE); NITRITE, URINE AUTO NEGATIVE (NEGATIVE); PROTEIN, URINE AUTO 1+ mg/dL (NEGATIVE); RBC, URINE AUTO 110 /HPF (0-3); SQUAMOUS EPITHELIAL CELL UR AU 0 /HPF (0-6); UROBILINOGEN, URINE AUTO 0.2 mg/dL (0.0-2.0); WBC, URINE AUTO TNTC /HPF (0-3)
== END ==
LOC: M SMT 12:44
PROVIDERS: ATTEND Physician Assistant
DX: R31.9 Hematuria, unspecified (principal)

== ENCOUNTER → 2024-08-10 | Outpatient (CLI) | payer MEDICARE | LOC: M RAD 13:17 | PROVIDERS: ATTEND Physician Assistant | DX: N28.1 Cyst of kidney, acquired (principal); Z87.442 Personal history of urinary calculi ==

== ENCOUNTER → 2024-08-22 | Outpatient (CLI) | payer MEDICARE | LOC: M RAD 07:00 | PROVIDERS: ATTEND Family Medicine | DX: K74.00 Hepatic fibrosis, unspecified (principal); K76.0 Fatty (change of) liver, not elsewhere classified; R16.0 Hepatomegaly, not elsewhere classified; N28.1 Cyst of kidney, acquired; I77.811 Abdominal aortic ectasia ==

== ENCOUNTER → 2024-08-25 | Outpatient (REF) | payer MEDICARE ==
[2024-08-25 18:18] LABS: APPEARANCE, URINE CLOUDY (CLEAR); BACTERIA, URINE AUTO 1+ (NEGATIVE); BILIRUBIN, URINE AUTO NEGATIVE (NEGATIVE); BLOOD, URINE BLOOD 3+ (NEGATIVE); COLOR, URINE YELLOW (YELLOW); GLUCOSE, URINE (UA) AUTO 3+ mg/dL (NEGATIVE); KETONE, URINE AUTO NEGATIVE (NEGATIVE); LEUKOCYTE ESTERASE, URINE AUTO 3+ (NEGATIVE); MUCUS, URINE SMALL (NEGATIVE); NITRITE, URINE AUTO NEGATIVE (NEGATIVE); PROTEIN, URINE AUTO NEGATIVE (NEGATIVE); RBC, URINE AUTO 96 /HPF (0-3); SPECIFIC GRAVITY URINE AUTO 1.018 (1.002-1.035); SQUAMOUS EPITHELIAL CELL UR AU 0 /HPF (0-6); UROBILINOGEN, URINE AUTO 0.2 mg/dL (0.0-2.0); WBC, URINE AUTO TNTC /HPF (0-3); YEAST LIKE CELL URINE AUTO SMALL
== END ==
LOC: M SMT 17:14
PROVIDERS: ATTEND Physician Assistant
DX: N40.1 Benign prostatic hyperplasia with lower urinary tract symptoms (principal)

== ENCOUNTER → 2024-10-27 | Outpatient (CLI) | payer MEDICARE ==
[2024-10-27 10:52] LABS: BASO # 0.1 10^3/uL (0.0-0.2); BASO % 0.6 % (0.0-1.0); EOS # 0.3 10^3/uL (0.0-0.5); EOS % 4.1 % (0.0-3.0); HEMOGLOBIN 17.1 g/dl (13.5-17.5); LYMPH # 2.7 10^3/uL (1.5-5.0); LYMPH % 32.2 % (24.0-44.0); MEAN CORPUSCULAR HEMOGLOBIN 33.1 pg (27.0-33.0); MEAN CORPUSCULAR HGB CONC 34.2 g/dl (32.0-36.5); MEAN CORPUSCULAR VOLUME 96.7 fl (80.0-96.0); MONO # 0.6 10^3/uL (0.0-0.8); MONO % 7.5 % (2.0-8.0); NEUTROPHILS # 4.6 10^3/uL (1.5-8.5); NEUTROPHILS % 55.2 % (36.0-66.0); PLATELET COUNT, AUTOMATED 195 10^3/uL (150-450); RED BLOOD COUNT 5.17 10^6/uL (4.30-6.10); WHITE BLOOD COUNT 8.2 10^3/uL (4.0-10.0)
[2024-10-27 10:55] LABS: PROSTATIC SPECIFIC AG MONITOR 0.33 NG/ML (< 4.00)
[2024-10-27 10:57] LABS: ALBUMIN 3.9 G/DL (3.2-5.2); ALKALINE PHOSPHATASE 69 U/L (40-129); ALT/SGPT 42 U/L (7.0-40); AST/SGOT 27 U/L (<34); BILIRUBIN,TOTAL 0.5 MG/DL (0.3-1.2); BLOOD UREA NITROGEN 22 MG/DL (9-23); CALCIUM LEVEL 9.3 MG/DL (8.3-10.6); CARBON DIOXIDE LEVEL 30 MMOL/L (20-31); CHLORIDE LEVEL 101 MMOL/L (98-107); CHOLESTEROL LEVEL 239 MG/DL (<200); CHOLESTEROL RISK RATIO 7.07 (<5); CREATININE FOR GFR 1.21 MG/DL (0.70-1.30); GLOMERULAR FILTRATION RATE 60.9 (>42); GLUCOSE, FASTING 167 MG/DL (74-106); HDL CHOLESTEROL 33.8 MG/DL (>40); NON-HDL-C 205.2 MG/DL; POTASSIUM SERUM 4.2 MMOL/L (3.5-5.1); SODIUM LEVEL 140 MMOL/L (136-145); TOTAL PROTEIN 7.4 G/DL (5.7-8.2); TRIGLYCERIDES LEVEL 773 MG/DL (<150)
[2024-10-27 11:00] LABS: FERRITIN 56.9 NG/ML (10.5-307.3)
[2024-10-27 11:04] LABS: HEMOGLOBIN A1c 6.6 % (4.0-6.0)
== END ==
LOC: M PLALAB 07:24
PROVIDERS: ATTEND Family Medicine
DX: E11.9 Type 2 diabetes mellitus without complications (principal); I10 Essential (primary) hypertension; E78.5 Hyperlipidemia, unspecified; Z87.898 Personal history of other specified conditions

== ENCOUNTER → 2025-05-31 | Outpatient (CLI) | payer MEDICARE ==
[~2025-05-31] MED LIST changes: -FLOM0.4C39 PO; +TAMS-18 PO
[2025-05-31 10:09] LABS: BASO # 0.1 10^3/uL (0.0-0.2); BASO % 0.6 % (0.0-1.0); EOS # 0.4 10^3/uL (0.0-0.5); EOS % 5.2 % (0.0-3.0); LYMPH # 1.8 10^3/uL (1.5-5.0); LYMPH % 23.5 % (24.0-44.0); MONO # 0.5 10^3/uL (0.0-0.8); MONO % 6.1 % (2.0-8.0); NEUTROPHILS # 5.0 10^3/uL (1.5-8.5); NEUTROPHILS % 64.2 % (36.0-66.0); PLATELET COUNT, AUTOMATED 226 10^3/uL (150-450)
[2025-05-31 10:27] LABS: INR 0.99
[2025-05-31 10:42] LABS: CREATININE, URINE 60.7 MG/DL; MALB URINE SIEMENS < 3.0 MG/L
[2025-05-31 10:45] LABS: ALT/SGPT 31 U/L (7.0-40); AST/SGOT 31 U/L (<34); CALCIUM LEVEL 9.7 MG/DL (8.3-10.6); CARBON DIOXIDE LEVEL 29 MMOL/L (20-31); CHLORIDE LEVEL 100 MMOL/L (98-107); CHOLESTEROL LEVEL 189 MG/DL (<200); CHOLESTEROL RISK RATIO 5.19 (<5); CPK CREATINE PHOSPHOKINASE 46 U/L (46-171); CREATININE FOR GFR 1.16 MG/DL (0.70-1.30); FREE T4 1.13 NG/DL (0.89-1.76); GLOMERULAR FILTRATION RATE 63.7 (>35); LDL CHOLESTEROL 88.6 MG/DL (<100); NON-HDL-C 152.6 MG/DL; POTASSIUM SERUM 4.6 MMOL/L (3.5-5.1); SODIUM LEVEL 140 MMOL/L (136-145); TRIGLYCERIDES LEVEL 320 MG/DL (<150)
== END ==
LOC: M PLALAB 07:40
PROVIDERS: ATTEND Family Medicine
DX: D50.9 Iron deficiency anemia, unspecified (principal); K74.00 Hepatic fibrosis, unspecified; E78.5 Hyperlipidemia, unspecified; I10 Essential (primary) hypertension; E11.9 Type 2 diabetes mellitus without complications